=== PATIENT | male | born 1990 | race Caucasian/White ===

== ENCOUNTER 2020-03-07 09:18 | Inpatient (IN) | payer BC, MEDICAID ==
[2020-03-07 10:42] LABS: Basophils # (A) 0.1 k/uL (0-0.2); Basophils % (A) 0 %; Eosinophils # (A) 0.2 k/uL (0-0.7); Eosinophils % (A) 1 %; HCT 47.5 % (39.0-53.0); HGB 16.3 gm/dL (13.0-17.5); Lymphocytes # (A) 0.4 k/uL (1.0-4.8); Lymphocytes % (A) 2 %; MCH 30.9 pg (25.0-35.0); MCHC 34.4 g/dL (31.0-37.0); MCV 89.9 fL (80.0-100.0); Mean Platelet Volume 7.7; Monocytes # (A) 0.7 k/uL (0-1.0); Monocytes % (A) 4 %; Neutrophils # (A) 17.2 k/uL (1.3-7.7); Neutrophils % (A) 92 %; Platelet Count 217 k/uL (150-450); RBC 5.28 m/uL (4.30-5.90); WBC 18.7 k/uL (3.8-10.6)
--- NOTE | 2020-03-07 10:43 | ED ---
URI HPI - General Chief Complaint: Upper Respiratory Infection Stated Complaint: Fever and chills Time Seen by Provider: 03/07/20 09:30 Source: patient Mode of arrival: ambulatory Limitations: no limitations - History of Present Illness Initial Comments: 29-year-old male presenting for recurrent fevers. Patient states a month ago he had fevers was diagnosed with Covid 19. Patient states the symptoms resolved as well as the fever, but on he developed fever, chills, cough. Thursday went to urgent care and was given a penicillin injection and outpatient steroids/antibiotics. pt states that throughout the week he has had increasing bursing pain in chest with cough, dyspnea at rest and exertion, denies leg swelling, hemoptysis. denies sore throat, neck stiffness, admits to intermittent headaches. pt denies abdominal pain, diarrhea, nausea or vomiting. Patient states that the discomfort int he chest increases with cough and deep inspiration. pt has no additional complaints. - Related Data Home Medications Medication Instructions Recorded Confirmed Albuterol Inhaler [Ventolin Hfa 2 puff INHALATION RT-Q4H PRN 03/07/20 03/07/20 Inhaler] Azithromycin [Zithromax Z-pack (6 See Taper PO DAILY 03/07/20 03/07/20 tabs)] Ibuprofen [Motrin Ib] 400 mg PO Q6H PRN 03/07/20 03/07/20 predniSONE [Deltasone] 40 mg PO DAILY 03/07/20 03/07/20 Allergies Allergy/AdvReac Type Severity Reaction Status Date / Time Penicillins Allergy Rash/Hives Verified 03/07/20 10:50 Review of Systems ROS Statement: Those systems with pertinent positive or pertinent negative responses have been documented in the HPI. ROS Other: All systems not noted in ROS Statement are negative. Past Medical History Past Medical History: No Reported History History of Any Multi-Drug Resistant Organisms: None Reported Past Surgical History: No Surgical Hx Reported Past Psychological History: No Psychological Hx Reported Smoking Status: Never smoker Past Alcohol Use History: Rare Past Drug Use History: None Reported General Exam - General Exam Comments Initial Comments: General: The patient is awake and alert, in no distress Eye: +3 mm pupils are equal, round and reactive to light, extra-ocular movements are intact. No nystagmus. There is normal conjunctiva bilaterally. No signs of icterus. Ears, nose, mouth and throat: There are moist mucous membranes and no oral lesions. Neck: The neck is supple, there is no tenderness or JVD. Cardiovascular: There is a regular rate and rhythm. No murmur, rub or gallop is appreciated. Respiratory: Respirations are non-labored, breath sounds are equal. rhonchi and rales present mid right field. Gastrointestinal: Soft, non-distended, non-tender abdomen without masses or organomegaly noted. There is no rebound or guarding present. Musculoskeletal: Normal ROM, no tenderness. Strength 5/5. Sensation intact. Radial pulses equal bilaterally 2+. Neurological: A&O x 3. CN II-XII intact grossly, There are no obvious motor or sensory deficits. Coordination appears grossly intact. Speech is normal. Skin: Skin is warm and dry and no rashes or lesions are noted. Psychiatric: Cooperative, appropriate mood & affect, normal judgment. Limitations: no limitations Course Vital Signs 03/07/20 03/07/20 03/07/20 09:23 09:37 10:44 Temperature 99.3 F 97.8 F Pulse Rate 108 H 78 Respiratory 18 18 18 Rate Blood Pressure 125/66 129/78 O2 Sat by Pulse 97 96 Oximetry 03/07/20 11:43 Temperature 98.1 F Pulse Rate 88 Respiratory 16 Rate Blood Pressure 124/76 O2 Sat by Pulse 96 Oximetry Medical Decision Making - Medical Decision Making Leukocytosis. On abx for 2 days ,with IM injection at urgent care thursday. increasing cough, high fevers. pt feels unwell. he is taking tylenol and ibuprofen at home. covid + one month ago with resolution of symptoms for > 1 week and return Thursday. pt CXR reveals a very prominent middle right lobar pneumonia. pt give IVF, abx and will be admitted for further monitoring evaluation. Dr Kumar is agreeable to care plan and admission. Lanie MELGAR accepted for [facility] group - Lab Data Result diagrams: 03/07/20 09:45 03/07/20 09:45 Lab Results 03/07/20 03/07/20 03/07/20 Range/Units 09:45 09:45 09:45 WBC 18.7 H (3.8-10.6) k/uL RBC 5.28 (4.30-5.90) m/uL Hgb 16.3 (13.0-17.5) gm/dL Hct 47.5 (39.0-53.0) % MCV 89.9 (80.0-100.0) fL MCH 30.9 (25.0-35.0) pg MCHC 34.4 (31.0-37.0) g/dL RDW 12.0 (11.5-15.5) % Plt Count 217 (150-450) k/uL MPV 7.7 Neutrophils % 92 % Lymphocytes % 2 % Monocytes % 4 % Eosinophils % 1 % Basophils % 0 % Neutrophils # 17.2 H (1.3-7.7) k/uL Lymphocytes # 0.4 L (1.0-4.8) k/uL Monocytes # 0.7 (0-1.0) k/uL Eosinophils # 0.2 (0-0.7) k/uL Basophils # 0.1 (0-0.2) k/uL PT 10.5 (9.0-12.0) sec INR 1.0 (<1.2) APTT 24.9 (22.0-30.0) sec D-Dimer 0.78 H (<0.60) mg/L FEU Sodium 136 L (137-145) mmol/L Potassium 4.0 (3.5-5.1) mmol/L Chloride 103 (98-107) mmol/L Carbon Dioxide 26 (22-30) mmol/L Anion Gap 7 mmol/L BUN 10 (9-20) mg/dL Creatinine 0.80 (0.66-1.25) mg/dL Est GFR (CKD-EPI)AfAm >90 (>60 ml/min/1.73 sqM) Est GFR (CKD-EPI)NonAf >90 (>60 ml/min/1.73 sqM) Glucose 126 H (74-99) mg/dL Plasma Lactic Acid Freedom (0.7-2.0) mmol/L Calcium 9.7 (8.4-10.2) mg/dL Magnesium 1.9 (1.6-2.3) mg/dL Total Bilirubin 1.1 (0.2-1.3) mg/dL AST 47 (17-59) U/L ALT 44 (4-49) U/L Alkaline Phosphatase 85 (38-126) U/L Lactate Dehydrogenase 499 (313-618) U/L Troponin I (0.000-0.034) ng/mL C-Reactive Protein 241.5 H (<10.0) mg/L Total Protein 7.7 (6.3-8.2) g/dL Albumin 4.1 (3.5-5.0) g/dL Influenza Type A (PCR) (Not Detectd) Influenza Type B (PCR) (Not Detectd) RSV (PCR) (Not Detectd) SARS-CoV-2 (PCR) (Not Detectd) 03/07/20 03/07/20 03/07/20 Range/Units 09:45 09:45 10:14 WBC (3.8-10.6) k/uL RBC (4.30-5.90) m/uL Hgb (13.0-17.5) gm/dL Hct (39.0-53.0) % MCV (80.0-100.0) fL MCH (25.0-35.0) pg MCHC (31.0-37.0) g/dL RDW (11.5-15.5) % Plt Count (150-450) k/uL MPV Neutrophils % % Lymphocytes % % Monocytes % % Eosinophils % % Basophils % % Neutrophils # (1.3-7.7) k/uL Lymphocytes # (1.0-4.8) k/uL Monocytes # (0-1.0) k/uL Eosinophils # (0-0.7) k/uL Basophils # (0-0.2) k/uL PT (9.0-12.0) sec INR (<1.2) APTT (22.0-30.0) sec D-Dimer (<0.60) mg/L FEU Sodium (137-145) mmol/L Potassium (3.5-5.1) mmol/L Chloride (98-107) mmol/L Carbon Dioxide (22-30) mmol/L Anion Gap mmol/L BUN (9-20) mg/dL Creatinine (0.66-1.25) mg/dL Est GFR (CKD-EPI)AfAm (>60 ml/min/1.73 sqM) Est GFR (CKD-EPI)NonAf (>60 ml/min/1.73 sqM) Glucose (74-99) mg/dL Plasma Lactic Acid Freedom 1.0 (0.7-2.0) mmol/L Calcium (8.4-10.2) mg/dL Magnesium (1.6-2.3) mg/dL Total Bilirubin (0.2-1.3) mg/dL AST (17-59) U/L ALT (4-49) U/L Alkaline Phosphatase (38-126) U/L Lactate Dehydrogenase (313-618) U/L Troponin I <0.012 (0.000-0.034) ng/mL C-Reactive Protein (<10.0) mg/L Total Protein (6.3-8.2) g/dL Albumin (3.5-5.0) g/dL Influenza Type A (PCR) Not Detected (Not Detectd) Influenza Type B (PCR) Not Detected (Not Detectd) RSV (PCR) Not Detected (Not Detectd) SARS-CoV-2 (PCR) Not Detected (Not Detectd) Disposition Clinical Impression: Fever, Leukocytosis, Right middle lobe pneumonia, COVID-19 Disposition: ADMITTED IP TO [facility] Condition: Stable Is patient prescribed a controlled substance at d/c from ED?: No Referrals: Noe Zepeda DO [Primary Care Provider] - 1-2 days Time of Disposition: 11:47 Decision to Admit Reason: Admit from EC Decision Date: 03/07/20 Decision Time: 11:47
[2020-03-07 10:55] LABS: Partial Thromboplastin Time 24.9 sec (22.0-30.0); Prothrombin Time 10.5 sec (9.0-12.0)
[2020-03-07 10:58] LABS: ALT 44 U/L (4-49); AST 47 U/L (17-59); African American GFR (CKD) >90 (>60 ml/min/1.73 sqM); Albumin 4.1 g/dL (3.5-5.0); Alkaline Phosphatase 85 U/L (38-126); Anion Gap 7 mmol/L; Blood Urea Nitrogen 10 mg/dL (9-20); Calcium 9.7 mg/dL (8.4-10.2); Carbon Dioxide 26 mmol/L (22-30); Chloride 103 mmol/L (98-107); Glucose 126 mg/dL (74-99); LDH 499 U/L (313-618); Magnesium 1.9 mg/dL (1.6-2.3); Non-African American GFR(CKD) >90 (>60 ml/min/1.73 sqM); Sodium 136 mmol/L (137-145); Total Bilirubin 1.1 mg/dL (0.2-1.3); Total Protein 7.7 g/dL (6.3-8.2)
--- NOTE | 2020-03-07 11:21 | XR ---
EXAMINATION TYPE: XR chest 1V portable DATE OF EXAM: 03/07/2020 Comparison: None Clinical History: 29-year-old male with cough Suspected COVID-19 pneumonia Findings: The cardiomediastinal silhouette, aorta, and pulmonary vasculature are within normal limits. There i s focal consolidation involving the right middle lobe. Impression: Focal right middle lobe consolidation/pneumonia.
[2020-03-07 11:31] LABS: C Reactive Protein 241.5 mg/L (<10.0)
[2020-03-07] MEDS ORDERED: VANCOMYCIN IV PER PHARMACY 1 EACH MISC MISCELLANE PRN (11:44)
[2020-03-07] MEDS ORDERED: NALOXONE 0.4 MG/ML 1 ML VIAL IV PRN (11:45)
[2020-03-07] MEDS ORDERED: SODIUM CHLORIDE 0.9% 2,000 ML IV ONE (11:48)
--- NOTE | 2020-03-07 11:52 | CT ---
CT CHEST FOR PULMONARY EMBOLISM. EXAMINATION TYPE: CT chest angio for PE DATE OF EXAM: 03/07/2020 INDICATION: D-dimer high CT DLP: 409.8 mGycm, Automated exposure control for dose reduction was used. CONTRAST: Patient injected with 100 ml mL of Isovue 300. COMPARISON: None TECHNIQUE: CT of the chest is performed on a spiral scan at 2 mm thick sections. Study is performed with intravenous contrast timed for evaluation for pulmonary embolism. This will limit additional po rtions of the evaluation. 3-D MIP images reconstructed by the technologist are reviewed on the compu ter in the coronal and sagittal planes. FINDINGS: No persistent filling defects are evident to suggest an acute pulmonary embolism. No mediastinal or hilar adenopathy enlarged by CT criteria is evident. The ascending aorta diameter at the level of the main pulmonary artery is 3.3 cm. The main pulmonary artery diameter at the bifur cation is 2.8 cm. There is a consolidation within the right middle lobe. Correlate for pneumonia. Limited CT section through the upper abdomen are unremarkable. IMPRESSIONS: 1. No acute pulmonary embolism. 2. Right middle lobe consolidation. Correlate for pneumonia.
[2020-03-07] MEDS ORDERED: VANCOMYCIN 1,500 MG in SODIUM CHLORIDE 0.9% 250 ML IVPB ONE (12:15)
[2020-03-07] MEDS: SODIUM CHLORIDE 0.9% 1,000 ML IV SCH ×2 (12:55→23:17)
[2020-03-07] MEDS ORDERED: ALBUTEROL HFA INHALER INHALATION PRN (14:07)
[2020-03-07] MEDS: IPRATROPIUM-ALBUTEROL 3 ML NEB INHALATION SCH ×2 (15:44→20:13)
--- NOTE | 2020-03-07 16:17 | CONS ---
CONSULTATION PULMONARY/CRITICAL CARE CONSULTATION: DATE OF SERVICE: 03/07/2020 REASON FOR CONSULTATION: Pneumonia. This is a 29-year-old male who presents to the emergency department with complaints of shortness of breath, cough, chest congestion, phlegm production and fever. The patient started feeling poorly on Thursday last. He went to [facility] on Thursday. Apparently he had a chest x-ray and was told that he had right-sided pneumonia. He was given prednisone, ibuprofen, azithromycin and an albuterol inhaler. Despite all that, the patient states that things were not getting any better, and for that reason he came in to be evaluated. Again his complaints include chest tightness, cough, shortness of breath, chest congestion, phlegm production, and fever with chills. The patient is otherwise healthy. He does not smoke or drink to any great extent. He does not really take any medications at home on a regular basis. He was admitted with a diagnosis of right middle lobe pneumonia. He had a chest x-ray and CT scan in the emergency room. HOME MEDICATIONS: His home medications, all of which were given to him at [facility], include an albuterol inhaler, Zithromax, Motrin and prednisone. ALLERGIES: PENICILLIN. MEDICAL HISTORY: Unremarkable. SURGICAL HISTORY: Unremarkable. FAMILY HISTORY: Unremarkable. SOCIAL HISTORY: Negative for tobacco and illicit drug use. He drinks alcohol rarely. He does not take any medications at home on a regular basis. Both mother and father were healthy. REVIEW OF SYSTEMS: CONSTITUTIONAL: Fever, chills. NEUROLOGIC: Negative. HEENT: Negative. CARDIOVASCULAR: Negative. PULMONARY: Shortness of breath, chest congesting, cough, phlegm production, chest tightness. GI: Negative. : Negative. RHEUMATOLOGIC: Negative. IMMUNOLOGIC: Negative. ENDOCRINOLOGIC: Negative. DERMATOLOGIC: Negative. PHYSICAL EXAMINATION: VITAL SIGNS: Current vital signs are reviewed. Temperature is 98 degrees, heart rate is 88, respiratory rate 16, blood pressure 134/87, room-air saturation 99%. GENERAL APPEARANCE: He appears in no acute distress. HEENT: Examination is grossly unremarkable. NECK: Supple. Full range of motion. No adenopathy. Neck veins are flat. CARDIOVASCULAR: Examination reveals regular rhythm and rate. Heart rate 88. S1, S2 normal. There are a few premature beats. Initially when I auscultated him I thought he might be in atrial fibrillation, but I think it is probably either PACs or premature ventricular contractions that I am hearing. LUNGS: Lungs reveal a few scattered rhonchi. There are a few crackles at the right base. No wheezes. Breath sounds normal on the left side. ABDOMEN: Soft. Bowel sounds are heard. EXTREMITIES: Intact. No cyanosis, clubbing or edema. SKIN: Without rash. NEUROLOGIC: Neurologic examination is brief but nonfocal. LABS/IMAGING: White count 18.7, hemoglobin 16.3, hematocrit 47.5, platelet count normal. PT, INR, PTT normal. D-dimer is 0.78. Sodium 136, potassium 4, chloride 103, CO2 26. Anion gap is 7. BUN and creatinine were 10 and 0.8. Glucose 126. Rest of the labs look okay. LDH is 499. C-reactive protein 241.5. Troponins were negative. COVID testing was negative. Influenza A and B testing was negative. Microbiology is currently negative. Chest x-ray and CT scan are consistent with right middle lobe consolidation. CURRENT MEDICATIONS: Current medications are reviewed. The patient is on albuterol inhaler, received some vancomycin and Rocephin in the emergency room, and just on ibuprofen and Narcan. ASSESSMENT: Community-acquired pneumonia, right middle lobe, failing outpatient therapy. PLAN: The patient will be placed on Rocephin and Zithromax. He should be treated for a community-acquired pneumonia. Vancomycin will be discontinued. Will put him on updrafts, both albuterol and Atrovent. No steroids are needed. We did an EKG. We also did a Legionella urinary antigen test. Prognosis is good. No additional recommendations are made. Repeat chest x-ray in a couple of days. MMODL / IJN: [id number] /
[2020-03-07 17:03] LABS: Ferritin 688.9 ng/mL (22.0-322.0)
[2020-03-07] MEDS ORDERED: VANCOMYCIN 1,500 MG in SODIUM CHLORIDE 0.9% 250 ML IVPB SCH (20:00)
[2020-03-07] MEDS: ALBUTEROL HFA INHALER INHALATION SCH (20:13)
[2020-03-07] MEDS: ENOXAPARIN 40 MG/0.4 ML SYRINGE SQ SCH (20:38)
--- NOTE | 2020-03-07 20:59 | HP ---
HISTORY AND PHYSICAL DATE OF SERVICE: 03/07/2020 CHIEF COMPLAINT: Fever and chills. HISTORY OF PRESENT ILLNESS: This 29-year-old gentleman with a past medical history of GERD and hernia repair, being followed by Dr. Zepeda in the outpatient setting, was having fevers. About a month ago the patient was diagnosed with COVID-19. It resolved and the fever also improved, but subsequently patient is having chills, fever and cough since Thursday. The patient had some antibiotics, and because of lack of improvement the patient came to [facility] and was admitted for further evaluation and treatment. Evaluation in the ER showed elevated WBC at 18.7. D-dimer was 0.78. C-reactive protein 241. Influenza was negative. COVID-19 per rapid testing protocol was negative. The patient had a chest x- ray, which I personally reviewed. It showed evidence of significant pneumonia on the right side, and a CTA was done which showed more extensive lesions on both lungs, but mostly on the right side, indicative of a consolidating pattern. The patient was admitted and pulmonary and infectious disease evaluations have been sought. Rocephin and Zithromax have been ordered. Cultures will be obtained. The patient is being closely monitored at this time. There is no history any headache, loss of consciousness, seizures, chest pain, palpitations at this time. PAST MEDICAL HISTORY: History of recent COVID-19 pneumonia, history of GERD, history of hernia repair. HOME MEDICATIONS: Prednisone taper, Motrin, Zithromax, albuterol. ALLERGIES: PENICILLIN. FAMILY HISTORY: History of DJD in the family. SOCIAL HISTORY: Occasional alcohol intake. REVIEW OF SYSTEMS: ENT: No diminished hearing. No diminished vision. CARDIOVASCULAR SYSTEM: As mentioned earlier. RESPIRATORY SYSTEM: As mentioned earlier. GI: No nausea, vomiting. : No dysuria or retention. NERVOUS SYSTEM: No numbness, weakness. ALLERGY/IMMUNOLOGY: No asthma, hayfever. MUSCULOSKELETAL: As mentioned earlier. HEMATOLOGY/ONCOLOGY: No history of anemia. ENDOCRINE: No history of diabetes, hypothyroidism. CONSTITUTIONAL: As mentioned earlier. DERMATOLOGY: Negative. RHEUMATOLOGY: Negative. PSYCHIATRY: As mentioned earlier. PHYSICAL EXAMINATION: Patient alert and oriented x3. Pulse is 124, blood pressure 116/76, respirations 17, temperature 98.1, pulse ox 98% on 2 L. HEENT: Conjunctivae normal. NECK: No jugular venous distention. CARDIOVASCULAR SYSTEM: S1, S2 muffled. RESPIRATORY SYSTEM: Breath sounds diminished at the bases. Bilateral scattered rhonchi and crackles. ABDOMEN: Soft, non-tender. No mass palpable. LEGS: No edema. No swelling. NERVOUS SYSTEM: Higher functions as mentioned earlier. Moves all 4 limbs. No focal motor or sensory deficit. LYMPHATICS: No lymph node palpable in neck, axillae or groin. SKIN: No ulcer, rash, bleeding. JOINTS: No active deforming arthropathy. LABS: WBC 18.7. D-dimer is 0.78. Sodium is 136. C-reactive protein is 241.5. Procalcitonin is 0.27. The troponins are negative. ASSESSMENT: 1. Acute right lower lobe pneumonia, possibly superadded pneumonia, community-acquired pneumonia versus Gram-negative pneumonia, with possible sepsis. 2. Recent COVID-19 acute infection. 3. Hyponatremia. 4. Increased white count. 5. Increased CRP. 6. Elevated procalcitonin. 7. Increased ferritin. 8. History of gastroesophageal reflux disease. 9. History of hernia. 10.FULL CODE. RECOMMENDATIONS AND DISCUSSION: In this 29-year-old gentleman who presented with multiple complex medical issues, we will monitor the patient closely, continue the current medications, continue symptomatic treatment. Will initiate broad-spectrum antibiotics. Obtain the cultures, including sputum cultures. Otherwise, infectious disease and pulmonary consultations. Guarded prognosis because of multiple complex medical issues. Further recommendations to follow. A copy of this dictation is being forwarded to Dr. Zepeda, who is the primary physician. MMODL / IJN: [id number] /
[2020-03-07] MEDS: IBUPROFEN 400 MG TAB PO PRN (21:19)
[2020-03-08] MEDS: SODIUM CHLORIDE 0.9% 1,000 ML IV SCH ×3 (06:06→21:51)
[2020-03-08 07:13] LABS: Basophils % (A) 0 %; Eosinophils % (A) 0 %; HCT 45.8 % (39.0-53.0); HGB 15.1 gm/dL (13.0-17.5); Lymphocytes # (A) 0.7 k/uL (1.0-4.8); Lymphocytes % (A) 4 %; MCH 30.5 pg (25.0-35.0); MCV 92.5 fL (80.0-100.0); Mean Platelet Volume 7.9; Monocytes # (A) 0.5 k/uL (0-1.0); Monocytes % (A) 3 %; Neutrophils # (A) 14.5 k/uL (1.3-7.7); Neutrophils % (A) 91 %; Platelet Count 209 k/uL (150-450); RBC 4.95 m/uL (4.30-5.90); RDW 12.2 % (11.5-15.5); WBC 15.9 k/uL (3.8-10.6)
[2020-03-08] MEDS: IPRATROPIUM-ALBUTEROL 3 ML NEB INHALATION SCH ×4 (07:35→20:14)
[2020-03-08] MEDS: ALBUTEROL HFA INHALER INHALATION SCH ×4 (07:43→20:12)
[2020-03-08] MEDS: ACETAMINOPHEN TAB 500 MG TAB PO PRN (08:44)
[2020-03-08] MEDS: AZITHROMYCIN 500 MG TAB PO SCH (08:44)
[2020-03-08 09:51] LABS: Erythrocyte Sedimentation Rate 69 mm/hr (0-15)
--- NOTE | 2020-03-08 10:47 | P.PN ---
Subjective Progress Note Date: 03/08/20 Principal diagnosis: Right middle lobe community-acquired pneumonia This a very pleasant 29-year-old gentleman who was admitted on 03/07/2020 with complaints of increasing shortness of breath, cough and congestion. He had been having symptoms for 4-5 days prior to his admission. [facility] and was treated with azithromycin, ibuprofen, prednisone without much improvement. He was subsequently admitted with a right midlung community- acquired pneumonia. He is on ceftriaxone and azithromycin along with bronchodilators. He is seen today in follow-up on the regular medical floor. He is resting comfortably in bed. He is having some fever and chills still. Still with a loose productive cough. Temperature 102.4 last evening. Currently afebrile. White count 15.9. Hemoglobin 15.1. ESR 69. Legionella antigen was negative. Influenza negative. Coronavirus not detected. Objective - Vital Signs Vital signs: Vital Signs Temp 98.3 F 03/08/20 05:00 Pulse 100 03/08/20 07:48 Resp 20 03/08/20 08:52 BP 100/64 03/08/20 05:00 Pulse Ox 95 03/08/20 05:00 Intake & Output 03/07/20 03/08/20 03/08/20 18:59 06:59 18:59 Intake Total 2880 Balance 2880 Weight 89.811 kg Intake: Intake, IV Titration 1300 Amount Sodium Chloride 0.9% 1, 1300 000 ml @ 130 mls/hr IV . Q7H42M [facility] Rx#:[id number] Oral 1580 Other: Voiding Method Toilet # Voids 3 - Exam GENERAL EXAM: Alert, pleasant 29-year-old gentleman, on room air, comfortable in no apparent distress. HEAD: Normocephalic. EYES: Normal reaction of pupils, equal size. NOSE: Clear with pink turbinates. THROAT: No erythema or exudates. NECK: No masses, no JVD. CHEST: No chest wall deformity. LUNGS: Equal air entry with scattered rhonchi over the right lung. CVS: S1 and S2 normal with no audible murmur, regular rhythm. ABDOMEN: No hepatosplenomegaly, normal bowel sounds, no guarding or rigidity. SPINE: No scoliosis or deformity SKIN: No rashes CENTRAL NERVOUS SYSTEM: No focal deficits, tone is normal in all 4 extremities. EXTREMITIES: There is no peripheral edema. No clubbing, no cyanosis. Pe ripheral pulses are intact. - Labs CBC & Chem 7: 03/08/20 06:23 03/07/20 09:45 Labs: Abnormal Lab Results - Last 24 Hours (Table) 03/07/20 03/07/20 03/07/20 Range/Units 09:45 09:45 09:45 WBC 18.7 H (3.8-10.6) k/uL Neutrophils # 17.2 H (1.3-7.7) k/uL Lymphocytes # 0.4 L (1.0-4.8) k/uL ESR (0-15) mm/hr D-Dimer 0.78 H (<0.60) mg/L FEU Sodium 136 L (137-145) mmol/L Glucose 126 H (74-99) mg/dL Ferritin 688.9 H (22.0-322.0) ng/mL C-Reactive Protein 241.5 H (<10.0) mg/L Procalcitonin (0.02-0.09) ng/mL 03/07/20 03/08/20 Range/Units 09:45 06:23 WBC 15.9 H (3.8-10.6) k/uL Neutrophils # 14.5 H (1.3-7.7) k/uL Lymphocytes # 0.7 L (1.0-4.8) k/uL ESR 69 H (0-15) mm/hr D-Dimer (<0.60) mg/L FEU Sodium (137-145) mmol/L Glucose (74-99) mg/dL Ferritin (22.0-322.0) ng/mL C-Reactive Protein (<10.0) mg/L Procalcitonin 0.27 H (0.02-0.09) ng/mL Assessment and Plan Assessment: 1 Acute community-acquired right midlung pneumonia, failed outpatient therapy Gina: The patient was seen and evaluated by Dr. Hilaroi Currently stable and on room air Continue bronchodilators and antibiotics Lovenox for DVT prophylaxis Increase his activity as tolerated Repeat chest x-ray in a.m. We will continue to follow I, the cosigning physician, performed a history & physical examination of the patient. Lungs sounds with few scattered rhonchi in the right lung. Maintaining good O2 saturations in the 90s on room air. I discussed the assessment and plan of care with my nurse practitioner, Misti Chu. I attest to the above note as dictated by her.
[2020-03-08] MEDS ORDERED: VANCOMYCIN TROUGH DUE 1 EACH MISC MISCELLANE ONE (11:00)
[2020-03-08 11:33] LABS: Appearance,Urine Clear (Clear); Bilirubin,Urine Negative (Negative); Blood,Urine Trace (Negative); Color,Urine Yellow; Glucose,Urine (UA) Negative (Negative); Ketones,Urine Negative (Negative); Leukocyte Esterase,Urine Negative (Negative); Mucus,Urine Rare /hpf; Nitrite,Urine Negative (Negative); PH, Urine 6.5 (5.0-8.0); Protein,Urine Trace (Negative); RBC,Urine 1 /hpf (0-5); Specific Gravity,Urine 1.009 (1.001-1.035); Squamous Epithelial Cell,Urine <1 /hpf (0-4); Urobilinogen,Urine <2.0 mg/dL (<2.0); WBC,Urine 1 /hpf (0-5)
[2020-03-08 13:20] VITALS: BMI 28.4
[2020-03-08] MEDS: ZINC SULFATE 220 MG CAP PO SCH (17:22)
[2020-03-08] MEDS: ASCORBIC ACID 500 MG TAB PO SCH (17:22)
[2020-03-08] MEDS: dexAMETHasone 2 MG TAB PO SCH (17:22)
[2020-03-08] MEDS: CHOLECALCIFEROL 1,000 UNIT TAB PO SCH (17:22)
[2020-03-08] MEDS: ALPRAZolam 0.25 MG TAB PO PRN (17:22)
[2020-03-08 17:38] LABS: African American GFR (CKD) 132.4 (60.0-200.0); Anion Gap 9.3 mmol/L (4.00-12.00); C Reactive Protein 31.9 mg/dL (0.0-0.8); Calcium 8.9 mg/dL (8.7-10.3); Carbon Dioxide 26.7 mmol/L (21.6-31.8); Non-African American GFR(CKD) 114.2 (60.0-200.0); Potassium 4.2 mmol/L (3.5-5.5)
--- NOTE | 2020-03-08 18:32 | PN ---
PROGRESS NOTE DATE OF SERVICE: 03/08/2020 This 29-year-old gentleman with a past medical history of recent COVID-19 was admitted with fever and chills. Patient had significant pneumonia on the right side. The patient also has tachycardia on and off at this time, which was seen on telemetry which is most likely sinus tachycardia. Cardiology evaluation has been sought. A chest CT was also done which showed no evidence of an acute pulmonary embolism. Patient is being closely monitored at this time. The patient's sed rate is 69 and CRP is elevated at 241. Patient had a very rate of inflammatory markers. Urine Legionella is negative. RSV is negative. The COVID-19 test was also negative in the combination testing. Past medical history reviewed. REVIEW OF SYSTEMS: CARDIOVASCULAR SYSTEM: As mentioned earlier. RESPIRATORY SYSTEM: As mentioned earlier. GI: As mentioned earlier. : No dysuria or retention. NERVOUS SYSTEM: No numbness, weakness. CURRENT MEDICATIONS: Tylenol, Ventolin, Rocephin, Motrin, Narcan. PHYSICAL EXAMINATION: Patient is alert, oriented x3. Pulse is 64, blood pressure 170/60, respiration 18, temperature 98.2, pulse ox on room air. HEENT: Conjunctivae normal. NECK: No jugular venous distention. CARDIOVASCULAR SYSTEM: S1, S2 muffled. RESPIRATORY SYSTEM: Breath sounds diminished at the bases. A few scattered rhonchi and crackles. ABDOMEN: Soft, non-tender. LEGS: No edema. No swelling. NERVOUS SYSTEM: No focal deficit. LABS: WBC 15.9, hemoglobin 15.1. ASSESSMENT: 1. Acute right lower lobe pneumonia, possibly superadded pneumonia, community- acquired pneumonia versus Gram-negative pneumonia with possible sepsis, present on admission. 2. Recent COVID-19 acute infection. 3. Hyponatremia. 4. Increased white count. 5. Tachycardia, possibly sinus. 6. Increased CRP. 7. Elevated procalcitonin. 8. Increased ferritin. 9. History of gastroesophageal reflux disease. 10.History of hernia. 11.FULL CODE. RECOMMENDATIONS AND DISCUSSION: I recommend to continue current medications, continue with the monitoring, symptomatic treatment. Continue with empiric antibiotics. I would also recommend supportive treatment, including Lovenox. Otherwise, I would also recommend a 2D echo with Doppler. Cardiology evaluation also. Closely follow with Infectious Disease and Pulmonary. Guarded prognosis. Further recommendations to follow. MMODL / IJN: [id number] / [email or web address]
[2020-03-08] MEDS: ENOXAPARIN 40 MG/0.4 ML SYRINGE SQ SCH (20:36)
[2020-03-08] MEDS: FAMOTIDINE 20 MG TAB PO SCH (20:36)
[2020-03-09] MEDS: ALPRAZolam 0.25 MG TAB PO PRN (04:57)
[2020-03-09] MEDS: SODIUM CHLORIDE 0.9% 1,000 ML IV SCH ×2 (04:57→12:46)
[2020-03-09 06:17] LABS: Basophils % (A) 0 %; Eosinophils % (A) 0 %; HGB 15.1 gm/dL (13.0-17.5); Lymphocytes # (A) 0.5 k/uL (1.0-4.8); Lymphocytes % (A) 2 %; MCH 31.1 pg (25.0-35.0); MCHC 33.5 g/dL (31.0-37.0); MCV 92.7 fL (80.0-100.0); Mean Platelet Volume 8.1; Monocytes # (A) 0.4 k/uL (0-1.0); Monocytes % (A) 2 %; Neutrophils # (A) 20.9 k/uL (1.3-7.7); Neutrophils % (A) 95 %; Platelet Count 256 k/uL (150-450); RBC 4.85 m/uL (4.30-5.90); RDW 12.3 % (11.5-15.5)
--- NOTE | 2020-03-09 07:06 | XR ---
EXAMINATION TYPE: XR chest 2V DATE OF EXAM: 03/09/2020 COMPARISON: Chest x-ray and CTA chest from 2 days ago. HISTORY: Right midlung pneumonia. TECHNIQUE: Frontal and lateral views of the chest are obtained. FINDINGS: There is worsening consolidation in the right lower lung now silhouetting entire right hem idiaphragm. There is also developing central vascular congestion. No new mediastinal shift. The card iac silhouette size remains within normal limits. The osseous structures are intact. IMPRESSION: Worsening right basilar acute infiltrate and/or atelectasis. Developing mild central vasc ular congestion.
[2020-03-09] MEDS: IPRATROPIUM-ALBUTEROL 3 ML NEB INHALATION SCH ×4 (07:33→20:00)
[2020-03-09] MEDS: ALBUTEROL HFA INHALER INHALATION SCH ×5 (07:41→19:59)
[2020-03-09] MEDS: FAMOTIDINE 20 MG TAB PO SCH ×2 (08:55→23:00)
[2020-03-09] MEDS: ZINC SULFATE 220 MG CAP PO SCH (08:55)
[2020-03-09] MEDS: CHOLECALCIFEROL 1,000 UNIT TAB PO SCH (08:56)
[2020-03-09] MEDS: APIXABAN 5 MG TAB PO SCH ×2 (08:56→23:00)
[2020-03-09] MEDS: AZITHROMYCIN 500 MG TAB PO SCH (08:56)
[2020-03-09] MEDS: ASCORBIC ACID 500 MG TAB PO SCH (08:56)
[2020-03-09] MEDS: dexAMETHasone 2 MG TAB PO SCH (08:56)
[2020-03-09] MEDS ORDERED: DILTIAZEM ORAL 60 MG TAB PO SCH (09:00)
[2020-03-09 09:55] LABS: African American GFR (CKD) 146.8 (60.0-200.0); Anion Gap 6.4 mmol/L (4.00-12.00); BUN/Creat Ratio 12.86 Ratio (12.00-20.00); Carbon Dioxide 26.6 mmol/L (21.6-31.8); Non-African American GFR(CKD) 126.6 (60.0-200.0); Potassium 4.5 mmol/L (3.5-5.5)
--- NOTE | 2020-03-09 11:10 | P.CONS ---
History of Present Illness - Reason for Consult Consult date: 03/08/20 pneumonia Requesting physician: Thad Zuniga - Chief Complaint fever and cough x 3 days - History of Present Illness Patient is a 29-year-old male apparently did have a COVID-19 infection about a month ago for me the patient recovered at home without any specific treatment patient now presenting to [facility] ER with concern for fever and chest pain that apparently started on Thursday that is 3 days before presentation to the hospital apparently the patient was given a dose of intramuscular antibiotic and discharged on steroids and antibiotic with the patient not sure about the name however the patient did have increasing burning pain in his chest intensity 5-6 out of 10 and no radiation the patient also have a cough which is moderate intensity and bringing up some sputum no hemoptysis no nausea no vomiting no abdominal pain no diarrhea with the symptom the patient was evaluated by the ER physician on arrival to the ER patient was running low- grade 99 point he subsequently spiked a fever of 104.4 F patient did have a white count of 18.7 is down to 13.9 today kidney function was normal ferritin was elevated procalcitonin 0.27, the patient has been negative patient did have a chest x-ray focal right middle lobe consolidation/pneumonia CT angiogram of the chest was done which did shows right middle lobe consolidation correlate for pneumonia patient has been admitted to hospital patient was started on Rocephin and Zithromax infectious was consulted for further management of antibiotic therapy. Review of Systems Positive point has been mentioned in HPI, rest of the systems are negative Past Medical History Past Medical History: GERD/Reflux History of Any Multi-Drug Resistant Organisms: None Reported Past Surgical History: Hernia Repair Additional Past Surgical History / Comment(s): Hernia repair as a child. Past Anesthesia/Blood Transfusion Reactions: No Reported Reaction Smoking Status: Never smoker - Past Family History Father Family Medical History: Osteoarthritis (OA) Mother Family Medical History: No Reported History Medications and Allergies Home Medications Medication Instructions Recorded Confirmed Type Albuterol Inhaler [Ventolin Hfa 2 puff INHALATION RT-Q4H PRN 03/07/20 03/07/20 History Inhaler] Azithromycin [Zithromax Z-pack (6 See Taper PO DAILY 03/07/20 03/07/20 History tabs)] Ibuprofen [Motrin Ib] 400 mg PO Q6H PRN 03/07/20 03/07/20 History predniSONE [Deltasone] 40 mg PO DAILY 03/07/20 03/07/20 History Allergies Allergy/AdvReac Type Severity Reaction Status Date / Time Penicillins Allergy Rash/Hives Verified 03/07/20 10:50 Physical Exam Vitals: Vital Signs Temp Pulse Pulse Resp BP Pulse Ox 03/08/20 21:00 97.9 F 120 H 32 H 123/80 95 03/08/20 20:24 112 H 03/08/20 20:14 114 H 03/08/20 14:00 97.7 F 67 22 126/78 93 L 03/08/20 12:49 66 03/08/20 12:38 65 03/08/20 10:40 98.4 F 64 18 117/67 91 L 03/08/20 08:52 20 03/08/20 07:48 100 03/08/20 07:36 100 03/08/20 05:00 98.3 F 113 H 20 100/64 95 Intake and Output 03/08/20 03/08/20 03/08/20 06:59 14:59 22:59 Intake Total 2880 1050 Balance 2880 1050 Intake: Intake, IV Titration 1300 1050 Amount Sodium Chloride 0.9% 1, 1300 1000 000 ml @ 130 mls/hr IV . Q7H42M [facility] Rx#:[id number] cefTRIAXone 1 gm In 50 Sodium Chloride 0.9% 50 ml @ 100 mls/hr IVPB Q24HR [facility] Rx#:[id number] Oral 1580 Other: # Voids 3 Weight 89.811 kg GENERAL DESCRIPTION: Middle-aged male lying in bed, no distress. No tachypnea or accessory muscle of respiration use. HEENT: Shows Pallor , no scleral icterus. Oral mucous membrane is dry. No pharyngeal erythema or thrush NECK: Trachea central, no thyromegaly. LUNGS: Unlabored breathing. Coarse breath sounds right side. No wheeze or crackle. HEART: S1, S2, regular rate and rhythm. No loud murmur ABDOMEN: Soft, no tenderness , guarding or rigidity, no organomegaly EXTREMITIES: No edema of feet. SKIN: No rash, no masses palpable. NEUROLOGICAL: The patient is awake, alert, oriented x3, mood and affect normal Results CBC & Chem 7: 03/09/20 05:44 03/09/20 05:44 Labs: Abnormal Lab Results - Last 24 Hours (Table) 03/08/20 03/08/20 03/08/20 Range/Units 06:23 06:23 09:47 WBC 15.9 H (3.8-10.6) k/uL Neutrophils # 14.5 H (1.3-7.7) k/uL Lymphocytes # 0.7 L (1.0-4.8) k/uL ESR 69 H (0-15) mm/hr BUN/Creatinine Ratio 10.00 L (12.00-20.00) Ratio Glucose 131 H (70-110) mg/dL C-Reactive Protein 31.9 H (0.0-0.8) mg/dL Urine Protein Trace H (Negative) Urine Blood Trace H (Negative) Urine Mucus Rare H (None) /hpf Microbiology - Last 24 Hours (Table) 03/07/20 09:45 Blood Culture - Preliminary Blood No Growth after 24 hours Assessment and Plan Assessment: 1-patient presented to hospital with sepsis in this patient who did have increasing shortness of breath cough fever elevated white count source likely right middle lobe pneumonia likely community-acquired (1) Sepsis Current Visit: Yes Status: Acute Code(s): A41.9 - SEPSIS, UNSPECIFIED ORGANISM SNOMED Code(s): 02476188 (2) Right middle lobe pneumonia Current Visit: Yes Status: Acute Code(s): J18.9 - PNEUMONIA, UNSPECIFIED ORGANISM SNOMED Code(s): 426814271 Plan: 1-obtain sputum for Gram stain and culture 2-Rocephin 1 g daily Zithromax should provide adequate antibiotic coverage We will follow on clinical condition and cultures to further adjust medication if needed Thank you for this consultation will follow this patient along with you Time with Patient: Greater than 30
[2020-03-09] MEDS ORDERED: FUROSEMIDE 10 MG/ML 2 ML VIAL IV ONE (11:34)
--- NOTE | 2020-03-09 11:48 | P.PN ---
Subjective Progress Note Date: 03/09/20 Principal diagnosis: Right middle lobe community-acquired pneumonia This a very pleasant 29-year-old gentleman who was admitted on 03/07/2020 with complaints of increasing shortness of breath, cough and congestion. He had been having symptoms for 4-5 days prior to his admission. [facility] and was treated with azithromycin, ibuprofen, prednisone without much improvement. He was subsequently admitted with a right midlung community- acquired pneumonia. He is on ceftriaxone and azithromycin along with bronchodilators. He is seen today in follow-up on the regular medical floor. He is resting comfortably in bed. He is having some fever and chills still. Still with a loose productive cough. Temperature 102.4 last evening. Currently afebrile. White count 15.9. Hemoglobin 15.1. ESR 69. Legionella antigen was negative. Influenza negative. Coronavirus not detected. The patient is seen today 03/09/2020 in follow-up on the regular medical floor. He is currently resting comfortably in bed. Awake and alert in no acute distress. He has been having issues with atrial fibrillation with a rapid ventricular response. He's been initiated on oral Cardizem and anticoagulated with Eliquis. Lovenox was discontinued. Echocardiogram is pending. He is maintaining good O2 saturations in the mid 90s on 2 L/m per nasal cannula. Currently afebrile. Blood culture reveals no growth. White count 22.0. Hemoglobin 15.1. Sodium 141. Potassium 4.5. Creatinine 0.7. C-reactive protein 38.0. Today's chest x-ray reveals worsening right basilar acute infiltrate/atelectasis. Mild central vascular congestion. He remains on ceftriaxone and azithromycin. Continue bronchodilators. Objective - Vital Signs Vital signs: Vital Signs Temp 98.5 F 03/09/20 10:41 Pulse 132 H 03/09/20 10:41 Resp 17 03/09/20 10:41 BP 125/77 03/09/20 10:41 Pulse Ox 96 03/09/20 10:41 Intake & Output 03/08/20 03/09/20 03/09/20 18:59 06:59 18:59 Intake Total 1050 500 Balance 1050 500 Weight 89.811 kg Intake: Intake, IV Titration 1050 Amount Sodium Chloride 0.9% 1, 1000 000 ml @ 130 mls/hr IV . Q7H42M [facility] Rx#:[id number] cefTRIAXone 1 gm In 50 Sodium Chloride 0.9% 50 ml @ 100 mls/hr IVPB Q24HR [facility] Rx#:[id number] Oral 500 Other: Voiding Method Toilet # Voids 2 - Exam GENERAL EXAM: Alert, pleasant 29-year-old gentleman, on 2 L nasal cannula, comfortable in no apparent distress. HEAD: Normocephalic. EYES: Normal reaction of pupils, equal size. NOSE: Clear with pink turbinates. THROAT: No erythema or exudates. NECK: No masses, no JVD. CHEST: No chest wall deformity. LUNGS: Equal air entry with scattered rhonchi over the right lung, diminished, crackles in the bases. CVS: S1 and S2 normal with no audible murmur, regular rhythm. Tachycardic. ABDOMEN: No hepatosplenomegaly, normal bowel sounds, no guarding or rigidity. SPINE: No scoliosis or deformity SKIN: No rashes CENTRAL NERVOUS SYSTEM: No focal deficits, tone is normal in all 4 extremities. EXTREMITIES: There is no peripheral edema. No clubbing, no cyanosis. Peripheral pulses are intact. - Labs CBC & Chem 7: 03/09/20 05:44 03/09/20 05:44 Labs: Abnormal Lab Results - Last 24 Hours (Table) 03/08/20 03/08/20 03/09/20 Range/Units 06:23 09:47 05:44 WBC 22.0 H (3.8-10.6) k/uL Neutrophils # 20.9 H (1.3-7.7) k/uL Lymphocytes # 0.5 L (1.0-4.8) k/uL BUN/Creatinine Ratio 10.00 L (12.00-20.00) Ratio Glucose 131 H (70-110) mg/dL C-Reactive Protein 31.9 H (0.0-0.8) mg/dL Urine Protein Trace H (Negative) Urine Blood Trace H (Negative) Urine Mucus Rare H (None) /hpf 03/09/20 Range/Units 05:44 WBC (3.8-10.6) k/uL Neutrophils # (1.3-7.7) k/uL Lymphocytes # (1.0-4.8) k/uL BUN/Creatinine Ratio (12.00-20.00) Ratio Glucose (70-110) mg/dL C-Reactive Protein 38.0 H (0.0-0.8) mg/dL Urine Protein (Negative) Urine Blood (Negative) Urine Mucus (None) /hpf Microbiology - Last 24 Hours (Table) 03/07/20 09:45 Blood Culture - Preliminary Blood No Growth after 24 hours Assessment and Plan Assessment: 1 Acute community-acquired right midlung pneumonia, failed outpatient therapy 2 Leukocytosis secondary to above 3 Febrile illness secondary to above 4 New onset atrial fibrillation with rapid ventricular response 5 History of CoVID 19 infection one month ago Plan: The patient was seen and evaluated by Dr. Hilario Chest x-ray reveals worsening infiltrate in the right lung, mild vascular congestion Initiated on oral Cardizem and anticoagulated with Eliquis, Lovenox discontinued Check a proBNP, T4, TSH Echocardiogram pending Lasix 20 mg IVP 1 Continue bronchodilators and antibiotics Add incentive spirometer and encourage cough and deep breathing exercises Repeat chest x-ray in a.m. We will continue to follow I, the cosigning physician, performed a history & physical examination of the patient. Lungs sounds with few scattered rhonchi in the right lung, bibasilar crackles, diminished. Maintaining good O2 saturations in the 90s on 2 L/m per nasal cannula. I discussed the assessment and plan of care with my nurse practitioner, Misti Chu. I attest to the above note as dictated by her.
--- NOTE | 2020-03-09 12:00 | P.CRDCN ---
History of Present Illness Consult date: 03/09/20 Consult reason: shortness of breath History of present illness: The patient is a 29-year-old male with past medical history of acid reflux and recent COVID 19 infection, who presented to the hospital with worsening shortness of breath and fever. He also reported some intermittent chest discomfort. This pain has since resolved. He states overall he is feeling better this morning, but continues to have shortness of breath and overall fatigue. Nursing staff notified on-call promotion officer of new onset arrhythmia. Telemetry strips examined, which confirms A. fib with RVR. DIAGNOSTICS: EKG showed sinus mechanism without ST or T-wave changes. Chest x-ray shows focal right middle lobe consolidation/pneumonia CT of the chest correlates chest x-ray readings of right middle lobe pneumonia Laboratory data shows WBC at 22.0, hemoglobin 15.1, hematocrit 45.0, platelet 256, sodium 141, potassium 4.5, BUN 9, creatinine 0.7, troponin less than 0.012, CRP 38, influenza negative, Legionella negative, RSV negative, and rapid covid swab negative PAST MEDICAL HISTORY: Acid reflux PHYSICAL EXAMINATION: Thorough physical exam not completed secondary to limited evaluation in the setting of Covid 19. FINAL ASSESSMENT AND PLAN: #1 shortness of breath, secondary to pneumonia and previous Covid 19 infection #2 acute right lower lobe pneumonia, failed outpatient therapy #3 recent Covid 19 infection #4 new onset of atrial fibrillation #5 leukocytosis PLAN: Start patient on novel anticoagulation due to patient's recent Covid 19 infection; discontinue Lovenox Start the patient on low-dose calcium channel susan for rate control Patient will likely convert back to sinus mechanism with resolution an acute infection Follow-up outpatient in 2-3 weeks for further management Plan of care has been reviewed and agreed upon by Dr Mckeon. Past Medical History Past Medical History: GERD/Reflux History of Any Multi-Drug Resistant Organisms: None Reported Past Surgical History: Hernia Repair Additional Past Surgical History / Comment(s): Hernia repair as a child. Past Anesthesia/Blood Transfusion Reactions: No Reported Reaction Smoking Status: Never smoker - Past Family History Father Family Medical History: Osteoarthritis (OA) Mother Family Medical History: No Reported History Medications and Allergies Home Medications Medication Instructions Recorded Confirmed Type Albuterol Inhaler [Ventolin Hfa 2 puff INHALATION RT-Q4H PRN 03/07/20 03/07/20 History Inhaler] Azithromycin [Zithromax Z-pack (6 See Taper PO DAILY 03/07/20 03/07/20 History tabs)] Ibuprofen [Motrin Ib] 400 mg PO Q6H PRN 03/07/20 03/07/20 History predniSONE [Deltasone] 40 mg PO DAILY 03/07/20 03/07/20 History Allergies Allergy/AdvReac Type Severity Reaction Status Date / Time Penicillins Allergy Rash/Hives Verified 03/07/20 10:50 Physical Exam Vitals: Vital Signs Temp Pulse Pulse Resp BP Pulse Ox 03/09/20 10:41 98.5 F 132 H 17 125/77 96 03/09/20 07:44 65 03/09/20 07:33 63 96 03/09/20 05:00 98.1 F 60 20 120/81 95 03/08/20 21:00 97.9 F 120 H 32 H 123/80 95 03/08/20 20:24 112 H 03/08/20 20:14 114 H 03/08/20 14:00 97.7 F 67 22 126/78 93 L 03/08/20 12:49 66 03/08/20 12:38 65 Intake and Output 03/08/20 03/09/20 03/09/20 22:59 06:59 14:59 Intake Total 1050 500 Balance 1050 500 Intake: Intake, IV Titration 1050 Amount Sodium Chloride 0.9% 1, 1000 000 ml @ 130 mls/hr IV . Q7H42M [facility] Rx#:[id number] cefTRIAXone 1 gm In 50 Sodium Chloride 0.9% 50 ml @ 100 mls/hr IVPB Q24HR [facility] Rx#:[id number] Oral 500 Other: Voiding Method Toilet # Voids 2 Results 03/09/20 05:44 03/09/20 05:44 CBC 03/09/20 Range/Units 05:44 WBC 22.0 H (3.8-10.6) k/uL RBC 4.85 (4.30-5.90) m/uL Hgb 15.1 (13.0-17.5) gm/dL Hct 45.0 (39.0-53.0) % Plt Count 256 (150-450) k/uL Comprehensive Metabolic Panel 03/08/20 03/09/20 Range/Units 06:23 05:44 Sodium 139 141 (135-145) mmol/L Potassium 4.2 4.5 (3.5-5.5) mmol/L Chloride 103 108 (96-109) mmol/L Carbon Dioxide 26.7 26.6 (21.6-31.8) mmol/L BUN 9.0 9.0 (9.0-27.0) mg/dL Creatinine 0.9 0.7 (0.6-1.5) mg/dL Glucose 131 H 109 (70-110) mg/dL Calcium 8.9 9.0 (8.7-10.3) mg/dL Current Medications Generic Name Dose Route Start Last Admin Trade Name Freq PRN Reason Stop Dose Admin Acetaminophen 1,000 mg 03/08/20 03:12 03/08/20 08:44 Acetaminophen Tab 500 Mg Tab PO 1,000 mg Q6HR PRN Administration Fever and/ or Pain Albuterol Sulfate 2 puff 03/07/20 20:00 03/09/20 07:41 Albuterol Hfa Inhaler INHALATION Not Given RT-QID [facility] Albuterol/Ipratropium 3 ml 03/07/20 16:00 03/09/20 07:33 Ipratropium-Albuterol 3 Ml Neb INHALATION 3 ml RT-QID [facility] Administration Alprazolam 0.5 mg 03/09/20 11:29 Alprazolam 0.5 Mg Tab PO TID PRN Anxiety Apixaban 5 mg 03/09/20 09:00 03/09/20 08:56 Apixaban 5 Mg Tab PO 5 mg BID [facility] Administration Ascorbic Acid 500 mg 03/08/20 17:00 03/09/20 08:56 Ascorbic Acid 500 Mg Tab PO 500 mg DAILY [facility] Administration Azithromycin 500 mg 03/08/20 09:00 03/09/20 08:56 Azithromycin 500 Mg Tab PO 500 mg DAILY [facility] Administration Cholecalciferol 1,000 unit 03/08/20 17:00 03/09/20 08:56 Cholecalciferol 1,000 Unit Tab PO 1,000 unit DAILY [facility] Administration Dexamethasone 6 mg 03/08/20 17:00 03/09/20 08:56 Dexamethasone 2 Mg Tab PO 6 mg DAILY [facility] Administration Diltiazem HCl 60 mg 03/09/20 09:00 03/09/20 08:56 Diltiazem Oral 60 Mg Tab PO 60 mg TID [facility] Administration Famotidine 20 mg 03/08/20 21:00 03/09/20 08:55 Famotidine 20 Mg Tab PO 20 mg BID [facility] Administration Sodium Chloride 1,000 mls @ 130 mls/hr 03/07/20 12:00 03/09/20 04:57 Saline 0.9% IV 130 mls/hr .Q7H42M [facility] Administration Ceftriaxone Sodium 1 gm/ 50 mls @ 100 mls/hr 03/08/20 09:00 03/09/20 08:56 Sodium Chloride IVPB 100 mls/hr Q24HR [facility] Administration Ibuprofen 400 mg 03/07/20 14:07 03/07/20 21:19 Ibuprofen 400 Mg Tab PO 400 mg Q6H PRN Administration Fever Naloxone HCl 0.2 mg 03/07/20 11:45 Naloxone 0.4 Mg/Ml 1 Ml Vial IV Q2M PRN Opioid Reversal Zinc Sulfate 220 mg 03/08/20 17:00 03/09/20 08:55 Zinc Sulfate 220 Mg Cap PO 220 mg DAILY [facility] Administration Intake and Output 03/08/20 03/09/20 03/09/20 22:59 06:59 14:59 Intake Total 1050 500 Balance 1050 500 Intake: Intake, IV Titration 1050 Amount Sodium Chloride 0.9% 1, 1000 000 ml @ 130 mls/hr IV . Q7H42M [facility] Rx#:[id number] cefTRIAXone 1 gm In 50 Sodium Chloride 0.9% 50 ml @ 100 mls/hr IVPB Q24HR [facility] Rx#:[id number] Oral 500 Other: Voiding Method Toilet # Voids 2 03/09/20 05:44 03/09/20 05:44
[2020-03-09] MEDS: ALPRAZolam 0.5 MG TAB PO PRN (12:46)
[2020-03-09] MEDS ORDERED: DILTIAZEM ORAL 60 MG TAB PO STA (12:59)
[2020-03-09] MEDS ORDERED: DILTIAZEM 125 MG in SODIUM CHLORIDE 0.9% 100 ML IV SCH (13:15)
[2020-03-09 13:53] LABS: Glucose,Whole Blood 144 mg/dL (75-99)
--- NOTE | 2020-03-09 14:19 | P.PN ---
Progress Note - Text Progress Note Date: 03/09/20 A- Team Indication: A fib Patient seen and examined at bedside. He complains of pounding in his chest and mild shortness of breath, feeling flushed, and. diaphoretic. He denies any overt chest pain. He does not feel lightheaded or to see. Vital signs reviewed General: non toxic, no distress, appears at stated age Derm: Diaphoretic, dry Head: atraumatic, normocephalic, symmetric Eyes: EOMI, no lid lag, anicteric sclera Mouth: no lip lesion, mucus membranes moist Cardiovascular: S1S2 regular and tachycardic, no murmur, positive posterior tibial pulse bilateral, Lungs: Decreased breath sounds bilateral, no rhonchi, no rales , no accessory muscle use Abdominal: soft, nontender to palpation, no guarding, no appreciable organomegaly Ext: no gross muscle atrophy, no edema, no contractures Neuro: CN II-XI grossly intact, no focal neuro deficits Psych: Alert, oriented, appropriate affect Assessment/Plan: 1. Atrial fibrillation with rapid ventricular response -Per ICU and then patient with pulse of 200. He was hooked up to crash carts we could provide bedside monitoring. Arrangements are made for transportation to [facility]. -0.9 normal saline started at 9.9 -EKG obtain which showed sinus tachycardia. However monitor clearly consistent with atrial fibrillation. -Patient was able to slow his heart rate by relaxing and deep breathing -Cardizem 10 mg IV push plus drip at 10 was ordered, however unable to be given on the unit. Ask pharmacy to send it up with ICU nurse at bedside. Patient was initially given 10 of IV Cardizem and had a response with a heart rate down to 140s, however quickly rebounded to 218. History was started. Dr. Mckeon contacted from cardiology who recommended increasing the drip to 15-20 mg/hr. - Patient transferred to ICU. HR decreased to 145, BP 101/42. - Report given to primary team - Dr. Hilario is already on consult - He reports that increased HR started after breathing treatment and trip to the bathroom and he felt very winded - Already on Eliquis as started by cardio on 03/09/20 A total of 31 minutes of critical care time was complex patient.
[2020-03-09] MEDS: DILTIAZEM 125 MG in SODIUM CHLORIDE 0.9% 100 ML IV SCH (14:30)
--- NOTE | 2020-03-09 16:29 | PN ---
PROGRESS NOTE DATE OF SERVICE: 03/09/2020 This 29-year-old gentleman who had a past medical history of medical problems admitted with COVID-19 pneumonia. The chest x-ray showed significant pneumonia on the right side. The patient is also seen by Cardiology. Patient also had Covid infection. The patient had atrial fibrillation with fast ventricular rate. Cardiology recommended Cardizem drip at this time. The patient will be transferred to telemetry at this time. PAST MEDICAL HISTORY: Reviewed. REVIEW OF SYSTEMS: CARDIOVASCULAR SYSTEM: No angina. RESPIRATION: As mentioned earlier. GI as mentioned earlier. : No dysuria. CURRENT MEDICATIONS: Reviewed and include: Tylenol, Ventolin, Xanax, Eliquis, vitamin C, Zithromax, Rocephin, Hexadrol, Pepcid. Motrin. Narcan and oral zinc. PHYSICAL EXAMINATION: Alert and oriented times three. Pulse 132, irregular. Blood pressure is 125/76, respiration 17, temperature 98.4, pulse ox 96% on 3 L. HEENT: Conjunctivae normal. Neck: No JVD. CARDIOVASCULAR: S1, S2. Respirations: Breath sounds diminished in the bases. A few scattered rhonchi and crackles. ABDOMEN: Soft. Nontender. Legs are no edema. No swelling. NERVOUS SYSTEM: No focal deficits. LAB STUDIES: WBC 22, hemoglobin 15.1. CRP is 38. TSH is 1.25. NT proBNP is 2830. Initial troponins are negative. Influenza is negative. RSV is negative. ASSESSMENT: 1. Acute right lower lobe pneumonia possibly suppurative pneumonia, community-acquired pneumonia or possibly gram-negative pneumonia with possible sepsis present on admission. 2. Recent Covid 19 acute infection. 3. Atrial fibrillation with fast ventricular rate and acute sinus tachycardia. 4. Hyponatremia. 5. Increased WBC. 6. Increased CRP. 7. Elevated procalcitonin. 8. Increased ferritin. 9. History of gastroesophageal reflux disease. 10.History of hernia. 11.FULL CODE. RECOMMENDATIONS AND DISCUSSION: Recommend to continue current medications. Continue to monitor. Symptomatic treatment. Otherwise, at this time, continue the Cardizem. Transfer to telemetry. Cardiology input appreciated. The CRP is 38 at this time. We will continue the rest of the medications including dexamethasone and antibiotics. Otherwise, a 2D echo with Doppler has been requested. I would also check a set of troponins also. Prognosis guarded because of multiple complex medical issues. Further recommendations to follow. The most recent Covid 19 testing is negative in the rapid assay, but the pneumonia seemed to be definitely related to the ongoing Covid 19 disease process. Overall prognosis guarded. Discussed with the patient at length. Further recommendations to follow. MMODL / IJN: [id number] /
[2020-03-09] MEDS ORDERED: METOPROLOL TARTRATE 50 MG TAB PO STA (16:35)
--- NOTE | 2020-03-09 16:44 | PN ---
PROGRESS NOTE DATE OF SERVICE: 03/09/2020 REASON FOR FOLLOWUP: Pneumonia. INTERVAL HISTORY: The patient did have an episode of atrial fibrillation with RVR and the patient subsequently has been transferred out of the ICU. The patient's fever has resolved. No fever in the last 24 hours. He is breathing slightly comfortably. He did have a cough with decreased intensity. No chest pain, no nausea, no vomiting, no abdominal pain, no diarrhea. PHYSICAL EXAMINATION: Blood pressure 125/77, pulse of 87, temperature 98F, 96% on 2 L nasal cannula. General description is a young male up in the bed in no distress. Respiratory system: Unlabored breathing, decreased breath sounds in the base, with no wheeze. Heart S1, S2. Regular rate and rhythm. Abdomen soft, no tenderness. No guarding, no rigidity. Extremities, no edema of the feet. LABS: Hemoglobin 15.1, WBC 22,000, BUN of 9, creatinine 0.7. Blood culture has been negative so far. Sputum not collected. DIAGNOSTIC IMPRESSION AND PLAN: Patient admitted to hospital with sepsis, source likely right middle lobe pneumonia, likely community-acquired. The patient's fever responded to the Rocephin. Did have now atrial fibrillation with RVR. The white count jumped more likely because of the dexamethasone the patient has been on. Try to obtain sputum and on antibiotics and monitor clinical course closely. MMODL / IJN: [id number] / MTDD
[2020-03-09] MEDS: ACETAMINOPHEN TAB 500 MG TAB PO PRN (19:06)
[2020-03-09] MEDS: METOPROLOL TARTRATE 50 MG TAB PO SCH (23:00)
[2020-03-10] MEDS: DILTIAZEM 125 MG in SODIUM CHLORIDE 0.9% 100 ML IV SCH ×2 (02:00→16:05)
[2020-03-10 05:00] LABS: Basophils % (A) 0 %; Eosinophils # (A) 0.1 k/uL (0-0.7); Eosinophils % (A) 0 %; Lymphocytes # (A) 0.7 k/uL (1.0-4.8); Lymphocytes % (A) 3 %; MCH 30.6 pg (25.0-35.0); MCHC 33.3 g/dL (31.0-37.0); MCV 92.1 fL (80.0-100.0); Mean Platelet Volume 7.9; Monocytes # (A) 0.4 k/uL (0-1.0); Monocytes % (A) 2 %; Neutrophils # (A) 23.3 k/uL (1.3-7.7); Neutrophils % (A) 95 %; Platelet Count 319 k/uL (150-450); RBC 4.56 m/uL (4.30-5.90); RDW 12.5 % (11.5-15.5); WBC 24.6 k/uL (3.8-10.6)
[2020-03-10 05:12] LABS: African American GFR (CKD) >90 (>60 ml/min/1.73 sqM); Anion Gap 4 mmol/L; Blood Urea Nitrogen 12 mg/dL (9-20); Calcium 8.9 mg/dL (8.4-10.2); Carbon Dioxide 29 mmol/L (22-30); Chloride 106 mmol/L (98-107); Glucose 124 mg/dL (74-99); Non-African American GFR(CKD) >90 (>60 ml/min/1.73 sqM); Sodium 139 mmol/L (137-145)
[2020-03-10 05:47] LABS: C Reactive Protein 308.3 mg/L (<10.0)
--- NOTE | 2020-03-10 06:57 | XR ---
EXAMINATION TYPE: XR chest 1V portable DATE OF EXAM: 03/10/2020 CLINICAL HISTORY: Difficulty breathing pneumonia progress study. TECHNIQUE: Single AP portable upright view of the chest is obtained. COMPARISON: Chest x-ray from one day earlier and older studies. FINDINGS: There is persistent consolidation in the right lower lung silhouetting right heart border and right hemidiaphragm. There is improving central vascular congestion. No new mediastinal shift. B ackground low lung volumes. The cardiac silhouette size is mildly enlarged. Patchy left basilar atel ectatic change redemonstrated. The osseous structures remain intact. IMPRESSION: Stable right basilar acute infiltrate and/or atelectasis. Stable patchy left basilar atel ectatic change. Persistent low lung volumes and mild cardiomegaly. Improved central vascular congesti on otherwise no significant interval change from one day earlier.
[2020-03-10] MEDS: IPRATROPIUM-ALBUTEROL 3 ML NEB INHALATION SCH ×2 (07:11→11:13)
--- NOTE | 2020-03-10 08:23 | P.PN ---
Subjective Progress Note Date: 03/10/20 Principal diagnosis: Paroxysmal atrial fibrillation This is a pleasant 29-year-old gentleman with a past medical history significant for history of COVID-19 infection recently who was admitted to the hospital with worsening shortness of breath and he was diagnosed with pneumonia. We consulted to see the patient mainly because of atrial fibrillation with RVR which was a new diagnosed as to the patient. The patient was seen this morning. He is feeling better in terms of shortness of breath. He remains hemodynamically stable and not requiring any vasopressors. He was converted to normal sinus mechanism yesterday. He is still on Cardizem drip which I'm going to discontinue an increase the dose of metoprolol to 50 mg by mouth 3 times a day. An echocardiogram still pending. Objective - Vital Signs Vital signs: Vital Signs Temp 97.8 F 03/10/20 04:00 Pulse 108 H 03/10/20 07:17 Resp 34 H 03/10/20 07:00 BP 107/66 03/10/20 07:00 Pulse Ox 93 L 03/10/20 07:00 Intake & Output 03/09/20 03/10/20 03/10/20 18:59 06:59 18:59 Intake Total 250 365 Output Total 1175 1100 Balance -925 -735 Weight 92 kg Intake: IV 250 240 Sodium Chloride 0.9% 1, 250 240 000 ml @ 130 mls/hr IV . Q7H42M [facility]IE Rx#:[id number] Intake, IV Titration 125 Amount Diltiazem 125 mg In 125 Sodium Chloride 0.9% 100 ml @ 10 MG/HR 10 mls/hr IV .[id number] EBONIE Rx#: [id number] Output: Urine 1175 1100 Other: Voiding Method Bedside Commode Bedside Commode # Voids 1 0 - Constitutional General appearance: Present: no acute distress - Respiratory Respiratory: bilateral: rales - Cardiovascular Rhythm: regular Heart sounds: normal: S1, S2 - Labs CBC & Chem 7: 03/10/20 04:34 03/10/20 04:34 Labs: Abnormal Lab Results - Last 24 Hours (Table) 03/09/20 03/09/20 03/10/20 Range/Units 05:44 13:51 04:34 WBC 24.6 H (3.8-10.6) k/uL Neutrophils # 23.3 H (1.3-7.7) k/uL Lymphocytes # 0.7 L (1.0-4.8) k/uL Creatinine (0.66-1.25) mg/dL Glucose (74-99) mg/dL POC Glucose (mg/dL) 144 H (75-99) mg/dL C-Reactive Protein 38.0 H (0.0-0.8) mg/dL 03/10/20 Range/Units 04:34 WBC (3.8-10.6) k/uL Neutrophils # (1.3-7.7) k/uL Lymphocytes # (1.0-4.8) k/uL Creatinine 0.64 L (0.66-1.25) mg/dL Glucose 124 H (74-99) mg/dL POC Glucose (mg/dL) (75-99) mg/dL C-Reactive Protein 308.3 H (0.0-0.8) mg/dL Microbiology - Last 24 Hours (Table) 03/07/20 09:45 Blood Culture - Preliminary Blood No Growth after 48 hours Assessment and Plan Assessment: Assessment #1 history of pneumonia #2 atrial fibrillation with rapid ventricular response. The patient converted to normal sinus mechanism #3 paroxysmal atrial fibrillation Plan #1 continue oral anticoagulation #2 DC Cardizem IV and increase the dose of metoprolol by mouth #3 follow-up with the patient #4 follow-up with the echo
[2020-03-10] MEDS: METOPROLOL TARTRATE 50 MG TAB PO SCH ×3 (08:52→21:44)
[2020-03-10] MEDS: dexAMETHasone 2 MG TAB PO SCH (08:52)
[2020-03-10] MEDS: ZINC SULFATE 220 MG CAP PO SCH (08:52)
[2020-03-10] MEDS: FAMOTIDINE 20 MG TAB PO SCH ×2 (08:52→20:21)
[2020-03-10] MEDS: APIXABAN 5 MG TAB PO SCH ×2 (08:52→20:21)
[2020-03-10] MEDS: AZITHROMYCIN 500 MG TAB PO SCH (08:52)
[2020-03-10] MEDS: ASCORBIC ACID 500 MG TAB PO SCH (08:53)
[2020-03-10] MEDS: CHOLECALCIFEROL 1,000 UNIT TAB PO SCH (08:53)
--- NOTE | 2020-03-10 10:34 | US ---
EXAMINATION TYPE: US chest DATE OF EXAM: 03/10/2020 COMPARISON: X-ray earlier today. CT 2 days ago. CLINICAL HISTORY: Markings for thoracentesis by pulmonary staff. Right pleural effusion TECHNIQUE: Targeted ultrasound of the posterior bilateral hemithoraces EXAM MEASUREMENTS: Right Pleural Effusion pocket size: 1.6 cm A/P longitudinal view Right skin surface to fluid distance: 3.4 cm A/P Left Pleural Effusion pocket size: 1.5 cm A./P transverse view and was assessed for comparison Right side was not marked for possible thoracentesis outside the dept. Left side was not marked for possible thoracentesis outside the dept. Pulmonologists are able to review the images in the patient?s EMR. Small right and tiny left pleural effusions seen on images saved. More prominent right basilar opacit y on x-ray likely product of atelectasis and/or infiltrate over significant effusion. IMPRESSIONS: As above.
[2020-03-10] MEDS: ALPRAZolam 0.5 MG TAB PO PRN (11:44)
--- NOTE | 2020-03-10 11:59 | P.PN ---
Subjective Progress Note Date: 03/10/20 Principal diagnosis: Right middle lobe community-acquired pneumonia This a very pleasant 29-year-old gentleman who was admitted on 03/07/2020 with complaints of increasing shortness of breath, cough and congestion. He had been having symptoms for 4-5 days prior to his admission. [facility] and was treated with azithromycin, ibuprofen, prednisone without much improvement. He was subsequently admitted with a right midlung community- acquired pneumonia. He is on ceftriaxone and azithromycin along with bronchodilators. He is seen today in follow-up on the regular medical floor. He is resting comfortably in bed. He is having some fever and chills still. Still with a loose productive cough. Temperature 102.4 last evening. Currently afebrile. White count 15.9. Hemoglobin 15.1. ESR 69. Legionella antigen was negative. Influenza negative. Coronavirus not detected. The patient is seen today 03/09/2020 in follow-up on the regular medical floor. He is currently resting comfortably in bed. Awake and alert in no acute distress. He has been having issues with atrial fibrillation with a rapid ventricular response. He's been initiated on oral Cardizem and anticoagulated with Eliquis. Lovenox was discontinued. Echocardiogram is pending. He is maintaining good O2 saturations in the mid 90s on 2 L/m per nasal cannula. Currently afebrile. Blood culture reveals no growth. White count 22.0. Hemoglobin 15.1. Sodium 141. Potassium 4.5. Creatinine 0.7. C-reactive protein 38.0. Today's chest x-ray reveals worsening right basilar acute infiltrate/atelectasis. Mild central vascular congestion. He remains on ceftriaxone and azithromycin. Continue bronchodilators. The patient is seen today 03/10/2020 in follow-up in the intensive care unit. He did develop another episode of atrial fibrillation with a rapid ventricular response. He was subsequently transferred here to the intensive care unit. He is on Cardizem drip at 15 mg per hour. 0.9 normal saline at KVO. He is maintaining O2 saturation in the 90s on 5 L/m per nasal cannula. Presently he is feeling quite well. He states his breathing is better today compared to yesterday. Chest x-ray continues to show significant right lower lobe consolidation/infiltrate. Ultrasound of the right chest revealed minimum fluid at 1.6 cm. Smaller left-sided pleural effusion measuring 1.5 cm. Blood cultures revealing no growth to date. White count 24.6. Hemoglobin 14.0. Lymphocytes 0.7. Sodium 139. Potassium 4.0. Creatinine 0.64. Glucose 124. C-reactive protein 308. BNP 2830. TSH 1.25. Echocardiogram recurrent results pending. He remains on DuoNeb inhalations, ceftriaxone and azithromycin, dexamethasone and vitamin supplements. He is anticoagulated with Eliquis. Objective - Vital Signs Vital signs: Vital Signs Temp 98.1 F 03/10/20 08:00 Pulse 102 H 03/10/20 11:20 Resp 33 H 03/10/20 11:00 BP 121/70 03/10/20 11:00 Pulse Ox 94 L 03/10/20 11:00 Intake & Output 03/09/20 03/10/20 03/10/20 18:59 06:59 18:59 Intake Total 250 365 80 Output Total 1175 1100 0 Balance -925 -735 80 Weight 92 kg Intake: IV 250 240 80 Sodium Chloride 0.9% 1, 250 240 80 000 ml @ 130 mls/hr IV . Q7H42M [facility] Rx#:[id number] Intake, IV Titration 125 Amount Diltiazem 125 mg In 125 Sodium Chloride 0.9% 100 ml @ 10 MG/HR 10 mls/hr IV .[id number] EBONIE Rx#: [id number] Output: Urine 1175 1100 0 Other: Voiding Method Bedside Commode Bedside Commode Bedside Commode # Voids 1 0 - Exam GENERAL EXAM: Alert, pleasant 29-year-old gentleman, on 5 L nasal cannula, comfortable in no apparent distress. HEAD: Normocephalic. EYES: Normal reaction of pupils, equal size. NOSE: Clear with pink turbinates. THROAT: No erythema or exudates. NECK: No masses, no JVD. CHEST: No chest wall deformity. LUNGS: Equal air entry with scattered rhonchi over the right lung, diminished, crackles in the bases. CVS: S1 and S2 normal with no audible murmur, irregular rhythm. Tachycardic. ABDOMEN: No hepatosplenomegaly, normal bowel sounds, no guarding or rigidity. SPINE: No scoliosis or deformity SKIN: No rashes CENTRAL NERVOUS SYSTEM: No focal deficits, tone is normal in all 4 extremities. EXTREMITIES: There is no peripheral edema. No clubbing, no cyanosis. Peripheral pulses are intact. - Labs CBC & Chem 7: 03/10/20 04:34 03/10/20 04:34 Labs: Abnormal Lab Results - Last 24 Hours (Table) 03/09/20 03/10/20 03/10/20 Range/Units 13:51 04:34 04:34 WBC 24.6 H (3.8-10.6) k/uL Neutrophils # 23.3 H (1.3-7.7) k/uL Lymphocytes # 0.7 L (1.0-4.8) k/uL Creatinine 0.64 L (0.66-1.25) mg/dL Glucose 124 H (74-99) mg/dL POC Glucose (mg/dL) 144 H (75-99) mg/dL C-Reactive Protein 308.3 H (<10.0) mg/L Microbiology - Last 24 Hours (Table) 03/07/20 09:45 Blood Culture - Preliminary Blood No Growth after 48 hours Assessment and Plan Assessment: 1 Acute community-acquired right midlung pneumonia, failed outpatient therapy 2 Leukocytosis secondary to above 3 Febrile illness secondary to above 4 New onset atrial fibrillation with rapid ventricular response 5 History of CoVID 19 infection one month ago Plan: The patient was seen and evaluated by Dr. Hilario Chest x-ray reveals worsening infiltrate in the right lung, mild vascular congestion Oxygenation requirements increased to 5 L Ultrasound of the right chest revealed minimal fluid at 1.6 cm We will plan for bronchoscopy with BAL of the right lung tomorrow Nothing by mouth after midnight Initiated on IV Cardizem and anticoagulated with Eliquis Echocardiogram results pending Continue bronchodilators and antibiotics Continue incentive spirometer and encourage cough and deep breathing exercises Repeat chest x-ray in a.m. We will continue to follow I, the cosigning physician, performed a history & physical examination of the patient. Lungs sounds with few scattered rhonchi in the right lung, bibasilar crackles, diminished. Maintaining good O2 saturations in the 90s on 5 L/m per nasal cannula. I discussed the assessment and plan of care with my nurse practitioner, Misti Chu. I attest to the above note as dictated by her.
[2020-03-10] MEDS ORDERED: diphenhydrAMINE 25 MG CAP PO PRN (16:00)
--- NOTE | 2020-03-10 17:58 | PN ---
PROGRESS NOTE DATE OF SERVICE: 03/10/2020 This 29-year-old gentleman being followed by Dr. Zepeda in the outpatient setting was admitted with possible COVID-19 pneumonia. The pneumonia is lobar pattern. The chest x-ray showed some worsening. The patient also had cardiac irregularity and sinus tachycardia and atrial fibrillation with fast ventricular rate, which was reversed at this time. Multiple consultants are following the patient. Patient closely monitored in ICU. A chest ultrasound showed no evidence of any significant pleural effusion and only slight pleural effusion was noted about 1.[address] Hilario is planning a bronchoscopy. Past medical history reviewed. REVIEW OF SYSTEMS: Cardiovascular system: No angina. RESPIRATORY: As mentioned earlier. GI as mentioned earlier. : No dysuria. NERVOUS SYSTEM: No numbness or weakness. CURRENT MEDICATIONS: Reviewed and include: Tylenol. Xanax, Eliquis, Zithromax, Rocephin, Pepcid. Motrin. Narcan. PHYSICAL EXAMINATION: Patient is alert, oriented x3. Pulse is 107. Blood pressure 100/70, respiration 18, temperature normal. Pulse ox 92% on 4 L. HEENT: Conjunctivae normal. NECK: No JVD. CARDIOVASCULAR: S1, S2. Respirations: Breath sounds diminished in the bases. Bilateral scattered rhonchi and crackles. ABDOMEN: Soft. Nontender. NERVOUS SYSTEM: No focal deficits. LAB STUDIES: WBC 24.6. Otherwise, C-reactive protein is 308.03. TSH is normal. ASSESSMENT: 1. Acute right lower lobe pneumonia possibly super added bacterial pneumonia possibly gram-negative pneumonia with possible sepsis present on admission. 2. Recent acute COVID-19 infection. 3. Atrial fibrillation with fast ventricular rate, paroxysmal, as well as acute sinus tachycardia, possibly secondary to COVID-19. 4. Hyponatremia. 5. Bilateral mild pleural effusions. 6. Increased WBC. 7. CRP. 8. Elevated procalcitonin. 9. Increased ferritin. 10.History of gastroesophageal reflux disease. 11.History of hernia. 12.FULL CODE. RECOMMENDATIONS AND DISCUSSION: Recommend to continue current medications, symptomatic treatment. Otherwise at this time I recommend continue the antibiotics. Further evaluation by Dr. Hilario. RSV and Covid 19 testing were negative. Covid 19 send out tests are probably not available so far. Otherwise pleural effusions noted. Sodium has improved at this time. We will continue to monitor. Empiric antibiotics will be given. Mycoplasma antibodies are still pending at this time. The white count is elevated to 24.6. Prognosis guarded. Further recommendations to follow. MMODL / IJN: [id number] /
[2020-03-10] MEDS: CEFEPIME 2 GM in SODIUM CHLORIDE 0.9% 100 ML IVPB SCH (21:43)
[2020-03-10] MEDS: diphenhydrAMINE 25 MG CAP PO PRN (21:44)
--- NOTE | 2020-03-10 21:50 | PN ---
PROGRESS NOTE DATE OF SERVICE: 03/10/2020 REASON FOR FOLLOWUP: Pneumonia. INTERVAL HISTORY: The patient is currently afebrile. The patient is breathing slightly comfortably. Heart rate is controlled. Denies any chest pain. He did have a cough, though decreased intensity, not bringing up any sputum. No nausea, no vomiting, no abdominal pain, no diarrhea. PHYSICAL EXAMINATION: Blood pressure 126/75 with a pulse of 90, temperature 98.9, he is 94% on 4 L nasal cannula. General description is a young male lying in bed in no distress. Respiratory system: Unlabored breathing, decreased intensity of breath sounds, occasional wheeze. Heart S1, S2, regular. Abdomen soft, no tenderness. LABS: Hemoglobin is 14.3, white count 4.6, BUN of 12, creatinine 0.61. CRP is up to 308. DIAGNOSTIC IMPRESSION AND PLAN: Patient admitted to the hospital with pneumonia, possibly community-acquired. The patient now with atrial fibrillation with RVR, has been transferred to the ICU and did have worsening of his white count. Currently on steroids. Will broaden antibiotic coverage to cefepime 2 grams q.12 hours. Continue with Zithromax. Possible bronchoscopy in the morning. Continue supportive care. MMODL / IJN: [id number] /
[2020-03-11] MEDS: DILTIAZEM 125 MG in SODIUM CHLORIDE 0.9% 100 ML IV SCH ×3 (04:16→23:41)
[2020-03-11] MEDS: diphenhydrAMINE 25 MG CAP PO PRN ×2 (05:19→14:31)
[2020-03-11 05:51] LABS: Basophils # (A) 0.1 k/uL (0-0.2); Basophils % (A) 0 %; Eosinophils # (A) 0.1 k/uL (0-0.7); Eosinophils % (A) 0 %; HCT 44.8 % (39.0-53.0); HGB 14.2 gm/dL (13.0-17.5); Lymphocytes % (A) 4 %; MCH 29.6 pg (25.0-35.0); MCHC 31.7 g/dL (31.0-37.0); MCV 93.3 fL (80.0-100.0); Mean Platelet Volume 7.7; Monocytes # (A) 0.6 k/uL (0-1.0); Monocytes % (A) 2 %; Neutrophils # (A) 26.3 k/uL (1.3-7.7); Neutrophils % (A) 93 %; Platelet Count 425 k/uL (150-450); RBC 4.81 m/uL (4.30-5.90); RDW 13.1 % (11.5-15.5); WBC 28.2 k/uL (3.8-10.6)
[2020-03-11 06:03] LABS: ALT 162 U/L (4-49); AST 105 U/L (17-59); African American GFR (CKD) >90 (>60 ml/min/1.73 sqM); Albumin 2.8 g/dL (3.5-5.0); Alkaline Phosphatase 128 U/L (38-126); Anion Gap 4 mmol/L; Blood Urea Nitrogen 18 mg/dL (9-20); Calcium 8.7 mg/dL (8.4-10.2); Carbon Dioxide 29 mmol/L (22-30); Chloride 106 mmol/L (98-107); Glucose 115 mg/dL (74-99); Non-African American GFR(CKD) >90 (>60 ml/min/1.73 sqM); Sodium 139 mmol/L (137-145); Total Bilirubin 0.6 mg/dL (0.2-1.3); Total Protein 5.8 g/dL (6.3-8.2)
--- NOTE | 2020-03-11 07:12 | XR ---
EXAMINATION TYPE: XR chest 1V portable DATE OF EXAM: 03/11/2020 CLINICAL HISTORY: Difficulty breathing and right lower lobe infiltrate progress study. TECHNIQUE: Single AP portable upright view of the chest is obtained. COMPARISON: Chest x-ray from one day earlier and older studies FINDINGS: There is persistent consolidation in the right lower lung silhouetting right hemidiaphragm . No new mediastinal shift. Background low lung volumes. The cardiac silhouette size is stable and m ildly enlarged. Patchy left basilar opacity redemonstrated. The osseous structures remain intact. IMPRESSION: Stable right lower lobe acute infiltrate and/or atelectasis. Stable patchy left basilar a telectatic and/or infiltrate. Persistent low lung volumes and mild cardiomegaly. No significant jaimes e from most recent x-ray.
[2020-03-11] MEDS: METOPROLOL TARTRATE 50 MG TAB PO SCH ×2 (08:25→20:22)
[2020-03-11] MEDS: FAMOTIDINE 20 MG TAB PO SCH ×2 (08:25→20:22)
[2020-03-11] MEDS: CEFEPIME 2 GM in SODIUM CHLORIDE 0.9% 100 ML IVPB SCH ×2 (08:25→20:23)
[2020-03-11] MEDS: AZITHROMYCIN 500 MG TAB PO SCH (08:26)
--- NOTE | 2020-03-11 08:35 | P.PN ---
Subjective Progress Note Date: 03/11/20 Principal diagnosis: Paroxysmal atrial fibrillation This is a pleasant 29-year-old gentleman with a past medical history significant for history of COVID-19 infection recently who was admitted to the hospital with worsening shortness of breath and he was diagnosed with pneumonia. We consulted to see the patient mainly because of atrial fibrillation with RVR which was a new diagnosed as to the patient. The patient was seen today February [id number]. He states "I feel great". Apparently the shortness of breath is better. No chest pain or chest discomfort. Unfortunately the chest x-ray continues to show right lower lobe infiltrate and the patient is in process of having bronchoscopy later on today. Hemodynamically he is stable. He has been maintaining normal sinus mechanism with intermittent episodes of A. fib. Having said that going to increase the dose of metoprolol to 100 mg by mouth twice a day. Otherwise we'll continue the rest of his current medical regimen including oral anticoagulation. From the cardiovascular standpoint overview, we will follow-up with the patient on when necessary case Objective - Vital Signs Vital signs: Vital Signs Temp 98.2 F 03/11/20 04:00 Pulse 78 03/11/20 07:00 Resp 20 03/11/20 07:00 BP 111/81 03/11/20 07:00 Pulse Ox 93 L 03/11/20 07:00 Intake & Output 03/10/20 03/11/20 03/11/20 18:59 06:59 18:59 Intake Total 330 790 20 Output Total 0 375 Balance 330 415 20 Weight 93.3 kg Intake: IV 120 340 20 0.9ns 20 240 20 Cefepime 2 gm In Sodium 100 Chloride 0.9% 100 ml @ 25 mls/hr IVPB Q12HR [facility] Rx #:[id number] Sodium Chloride 0.9% 1, 100 000 ml @ 130 mls/hr IV . Q7H42M [facility] Rx#:[id number] Intake, IV Titration 110 Amount cefTRIAXone 1 gm In 110 Sodium Chloride 0.9% 50 ml @ 100 mls/hr IVPB Q24HR [facility]ON[facility] Rx#:[id number] Oral 100 450 Output: Urine 0 375 Other: Voiding Method Bedside Commode Bedside Commode Urinal # Voids 1 0 - Constitutional General appearance: Present: no acute distress - Respiratory Respiratory: right: diminished - Cardiovascular Rhythm: regular Heart sounds: normal: S1, S2 - Labs CBC & Chem 7: 03/11/20 05:38 03/11/20 05:38 Labs: Abnormal Lab Results - Last 24 Hours (Table) 03/11/20 03/11/20 03/11/20 Range/Units 05:30 05:38 05:38 WBC 28.2 H (3.8-10.6) k/uL Neutrophils # 26.3 H (1.3-7.7) k/uL Glucose 115 H (74-99) mg/dL AST 105 H (17-59) U/L ALT 162 H (4-49) U/L Alkaline Phosphatase 128 H (38-126) U/L C-Reactive Protein 178.5 H (<10.0) mg/L Total Protein 5.8 L (6.3-8.2) g/dL Albumin 2.8 L (3.5-5.0) g/dL Microbiology - Last 24 Hours (Table) 03/07/20 09:45 Blood Culture - Preliminary Blood No Growth after 72 hours Assessment and Plan Assessment: Assessment #1 history of pneumonia #2 atrial fibrillation with rapid ventricular response. The patient converted to normal sinus mechanism #3 paroxysmal atrial fibrillation Plan #1 increase the dose of metoprolol 200 mg by mouth twice a day #2 continue oral anticoagulation #3 follow-up with the patient on when necessary
--- NOTE | 2020-03-11 09:31 | ECHOF ---
Referral Reason:rapid heart rate MEASUREMENTS -------- HEIGHT: 152.4 cm WEIGHT: 91.6 kg BP: IVSd: 1.1 cm (0.6 - 1.1) LVIDd: 5.3 cm (3.9 - 5.3) LVPWd: 1.2 cm (0.6 - 1.1) IVSs: 1.6 cm LVIDs: 3.2 cm LVPWs: 1.3 cm RVIDd: 2.8 cm (< 3.3) LAESV Index (A-L): 33.50 ml/m Ao Diam: 3.5 cm (2.0 - 3.7) AV Cusp: 2.3 cm (1.5 - 2.6) EPSS: 0.4 cm MV E Terry: 1.08 m/s MV DecT: 154 ms MV A Terry: 1.09 m/s MV E/A Ratio: 1.00 RAP: 5.00 mmHg RVSP: 26.04 mmHg MV EF SLOPE: 158.37 mm/s (70 - 150) MV EXCURSION: 21.87 mm (> 18.000) TAPSE: 26.45 mm FINDINGS -------- This was a technically good study. Covid positive patient. LV size, wall thickness and systolic function are normal, with an EF greater than 55%. The left scott tricular size is normal. The right ventricle is normal in size. The left atrial size is normal. The right atrial size is normal. The aortic valve is trileaflet, and appears structurally normal. No aortic stenosis or regurgitation. Mild mitral regurgitation is present. Mild tricuspid regurgitation present. Right ventricular systolic pressure is normal at < 35 mmHg. There is no pulmonic regurgitation present. The aortic root size is normal. There is a small, generalized pericardial effusion present. CONCLUSIONS -------- 1. Covid positive patient. 2. LV size, wall thickness and systolic function are normal, with an EF greater than 55%. 3. The left ventricular size is normal. 4. The right ventricle is normal in size. 5. The left atrial size is normal. 6. The right atrial size is normal. 7. The aortic valve is trileaflet, and appears structurally normal. No aortic stenosis or regurgitati on. 8. Mild mitral regurgitation is present. 9. Mild tricuspid regurgitation present. 10. There is no pulmonic regurgitation present. 11. The aortic root size is normal. 12. There is a small, generalized pericardial effusion present. INTERNIST: Sheila Goodman RDCS
--- NOTE | 2020-03-11 12:29 | PN ---
PROGRESS NOTE PULMONARY/CRITICAL CARE PROGRESS NOTE: DATE OF SERVICE: 03/11/2020 29-year-old gentleman who was admitted to the hospital with a diagnosis of acute community-acquired pneumonia involving the right middle lobe and right lower lobe. He failed outpatient therapy. The patient did have a positive COVID test back in early January. Anyway, the patient, since he has been here in the hospital, has developed a couple of issues including atrial fibrillation with RVR, being followed by Cardiology as well as volume loss in that right lung. Today, he is going to undergo bronchoscopy. He otherwise is relatively healthy. He is feeling a bit better today compared to how he has been feeling. He is currently on 4 L nasal cannula and saline IV KVO. Cardiology has increase his Lopressor to 100 mg twice a day for rate control. PHYSICAL EXAMINATION: VITAL SIGNS: Current vital signs are reviewed. Temperature 97.7, heart rate 85, respiratory rate 23, blood pressure 119/83, mean 95, 4 L saturations 96%. Appears in no acute distress. HEENT: Examination is grossly unremarkable. NECK: Supple. Full range of motion. No adenopathy. Neck veins are flat. CARDIOVASCULAR: Examination reveals regular rhythm and rate. He is in sinus rhythm. Heart rate 85. S1, S2 normal. LUNGS: Reveal crackles at the right lung base. There are diminished breath sounds on the right side. A few scattered rhonchi on the right side. Left lung is clear. ABDOMEN: Soft. Bowel sounds are heard. EXTREMITIES are intact. No cyanosis, clubbing, or edema. SKIN: Without rash. NEUROLOGIC: Examination is brief but nonfocal. White count 28.2, hemoglobin 14.2, hematocrit 44.8, platelet count 425,000. Sodium 139, potassium 4, chloride 106, CO2 29, anion gap is 4. BUN and creatinine were 18 and 0.66. Glucose was 115. AST 105, ALT 162, alkaline phosphatase 128. C-reactive protein 179, albumin 2.8. TSH was normal. N-terminal proBNP 2830. Microbiology is currently negative. A chest x-ray from today continues to show right lower lobe/right middle lobe infiltrate with atelectasis. CURRENT MEDICATIONS: Reviewed. The patient is currently on Xanax, Eliquis, Zithromax, cefepime, Benadryl, famotidine, ibuprofen, metoprolol, Narcan. ASSESSMENT: 1. Community-acquired pneumonia, right middle lobe/right lower lobe with volume loss and anticipated bronchoscopy today. 2. Atrial fibrillation with rapid ventricular response, currently being managed by Cardiology. 3. A relatively recent history of COVID-19 infection in early January. The patient did not require any hospitalization or any particular treatment at that time. PLAN: The patient will have bronchoscopy today. His oxygen requirements today at 4 L. He is being managed by cardiology as it relates to his atrial fibrillation. His rate has been more stable as is his rhythm. We will continue to follow. Prognosis is guarded. No additional recommendations are made. MMODL / IJN: [id number] /
[2020-03-11] MEDS ORDERED: PROPOFOL 10 MG/ML 20 ML VIAL IV ONE (12:51)
[2020-03-11] MEDS ORDERED: MIDAZOLAM 2 MG/2 ML VIAL ONE (12:51)
[2020-03-11] MEDS ORDERED: SUCCINYLCHOLINE CHLORIDE 100 MG/5 ML SYR IV ONE (12:51)
[2020-03-11] MEDS ORDERED: IV FLUID CONTINUATION 1,000 ML IV ONE (13:01)
[2020-03-11] MEDS: APIXABAN 5 MG TAB PO SCH ×2 (14:31→20:23)
[2020-03-11] MEDS: IBUPROFEN 400 MG TAB PO PRN ×2 (16:19→23:53)
--- NOTE | 2020-03-11 17:17 | PN ---
PROGRESS NOTE DATE OF SERVICE: 03/11/2020 This 29-year-old gentleman who was admitted with acute right lower lobe pneumonia, possibly bacterial pneumonia is being closely monitored. The patient also had tachycardia and paroxysmal atrial fibrillation. Patient monitored closely in the ICU. Bronchoscopy is being planned today by Dr. Hilario. PAST MEDICAL HISTORY: Reviewed. REVIEW OF SYSTEMS: CARDIOVASCULAR: No angina. RESPIRATORY: As mentioned earlier. GI: As mentioned earlier. NERVOUS SYSTEM: No numbness or weakness CURRENT MEDICATIONS: Reviewed include Xanax, Eliquis, Zithromax, cefepime, Benadryl, Pepcid, Narcan. PHYSICAL EXAMINATION: Patient is alert, oriented x3. Pulse is 103, blood pressure 120/82, respiration 30, temperature 97.7, pulse ox 98% on 4 L. HEENT: Conjunctivae normal. Oral mucosa moist. NECK: No jugular venous distention. No lymph node enlargement. CARDIOVASCULAR: S1, S2, muffled. No S3, no S4, RESPIRATORY: Diminished breath sounds at the bases. Bilateral scattered rhonchi and crackles. ABDOMEN: Soft, nontender. NERVOUS SYSTEM: No focal motor or sensory deficits. LAB STUDIES: WBC 28.2, hemoglobin 14.2. AST/ALT noted, elevated. ASSESSMENT: 1. Acute right lower lobe pneumonia, possibly bacterial pneumonia, possibly gram- negative pneumonia with possible sepsis, present on admission. 2. Recent acute COVID-19 infection. 3. Atrial fibrillation with fast ventricular rate, paroxysmal, as well as acute sinus tachycardia, possibly secondary to COVID-19. 4. Hyponatremia. 5. Bilateral mild pleural effusion. 6. Increased WBC. 7. Elevated LFTs, possibly secondary to COVID-19. 8. CRP. 9. Elevated procalcitonin. 10.Increased ferritin. 11.History of gastroesophageal reflux disease. 12.History of hiatal hernia. 13.FULL CODE. RECOMMENDATIONS AND DISCUSSION: Recommend to continue current management and symptomatic treatment. Otherwise, at this time repeat labs continue the empiric antibiotics. Continue the rest of medications. Guarded prognosis because of multiple complex medical issues. Further recommendations to follow. Mycoplasma antibody is pending at this time further: MMODL / IJN: [id number] / MTDD
[2020-03-11 17:48] LABS: Appearance,BF Hazy; Color,BF Pink; Mononuclear WBC,Body Fluid 72 %; Nucleated Cells, Body Fluid 1170 /uL; Polynuclear WBC,Body Fluid 28 %; RBC, Body Fluid 2610 /uL
--- NOTE | 2020-03-11 20:20 | PCN ---
PROCEDURE NOTE PULMONARY/CRITICAL CARE PROCEDURE NOTE: PROCEDURE PERFORMED: A bronchoscopy airway examination, therapeutic lavage, BAL right middle lobe. PREOPERATIVE DIAGNOSIS: Right middle lobe pneumonia. POSTOP DIAGNOSIS: Right middle lobe pneumonia. OPERATORS: Dr. Hilario and Dr. Chu. There was informed consent and universal timeout. Mariama Adams was the [employer]OL[employer] COURSE ASSISTANT and Dr. Trejo was anesthesiologist. They gave a general anesthesia to this patient. The patient's procedure was done in room #1. DESCRIPTION OF PROCEDURE: After the patient was adequately sedated and anesthetized, the bronchoscope was inserted through the bronchoscope adapter connected to the endotracheal tube. There was a thorough inspection of both lungs. The right upper lobe and its 3 segments, right middle lobe and its 2 segments, the right lower lobe and its 5 segments, the left upper lobe proper and its 2 segments, the lingula and its 2 segments and the left lower lobe and its 4 segments were all evaluated. Of note, was the fact that there were significant erythema and hyperemia in the right middle lobe. Some mucus was noted there. There was no dominant mass or tumor. There was no bleeding. The rest of the airways looked relatively normal. The mucosa was just very mild erythematous throughout. There was no significant mucus plugging noted. The bronchoscope was wedged into the right middle lobe. The BAL took place. Thirty mL was recovered. The patient tolerated the procedure well. The fluid will be sent for analysis including cytology, and microbiology. There was no immediate complication. The patient will be recovered. I did give the findings to the patient's , Mami, who works in the intensive care unit. The patient will make his way back to the intensive care unit after being recovered. Again there was no immediate complication or issues. MMODL / IJN: [id number] / MTDD
[2020-03-11] MEDS: ALPRAZolam 0.5 MG TAB PO PRN (20:28)
--- NOTE | 2020-03-11 21:50 | PN ---
PROGRESS NOTE DATE OF SERVICE: 03/11/2020 REASON FOR FOLLOWUP: Pneumonia. INTERVAL HISTORY: The patient is currently afebrile. The patient is status post bronchoscopy. Patient tolerated his procedure and is breathing more comfortably. Denies any chest pain. Did have a cough, not bringing any sputum. No nausea. No vomiting. No abdominal pain or diarrhea. PHYSICAL EXAMINATION: Blood pressure 107/69, pulse of 110, temperature is 97.7. He is 96% on 4 L nasal cannula. General description is a young male lying in bed in no distress. Respiratory system: Unlabored breathing. Coarse breath sounds bilaterally. No wheeze. HEART: S1, S2. Regular rate and rhythm. ABDOMEN: Soft, no tenderness. LABS: Hemoglobin is 14.1, white count 28.2, BUN of 18, creatinine 0.66. DIAGNOSTIC IMPRESSION AND PLAN: Patient admitted to the hospital with pneumonia. This patient subsequently did have worsening of his respiratory status and plus-minus component of atrial fibrillation with RVR. The patient is status post bronchoscopy. Those cultures will be followed. Continue cefepime and Zithromax and monitor clinical course closely. MMODL / IJN: [id number] /
[2020-03-12] MEDS: ACETAMINOPHEN TAB 325 MG TAB PO PRN ×2 (02:08→16:50)
[2020-03-12] MEDS: diphenhydrAMINE 25 MG CAP PO PRN ×2 (02:08→20:25)
[2020-03-12 03:35] LABS: Mycoplasma IgG Antibody (EIA) 2.1 INDEX (<=0.90); Mycoplasma IgM Antibody 0.42 INDEX (<=0.90)
[2020-03-12 03:49] LABS: ALT 181 U/L (4-49); AST 84 U/L (17-59); African American GFR (CKD) >90 (>60 ml/min/1.73 sqM); Albumin 2.5 g/dL (3.5-5.0); Alkaline Phosphatase 147 U/L (38-126); Anion Gap 5 mmol/L; Blood Urea Nitrogen 18 mg/dL (9-20); Calcium 8.1 mg/dL (8.4-10.2); Carbon Dioxide 26 mmol/L (22-30); Chloride 103 mmol/L (98-107); Glucose 103 mg/dL (74-99); Non-African American GFR(CKD) >90 (>60 ml/min/1.73 sqM); Potassium 3.6 mmol/L (3.5-5.1); Sodium 134 mmol/L (137-145); Total Protein 5.4 g/dL (6.3-8.2)
[2020-03-12 03:51] LABS: Basophils # (A) 0.1 k/uL (0-0.2); Basophils % (A) 0 %; Eosinophils # (A) 0.3 k/uL (0-0.7); Eosinophils % (A) 1 %; HCT 44.2 % (39.0-53.0); HGB 13.9 gm/dL (13.0-17.5); Lymphocytes # (A) 1.4 k/uL (1.0-4.8); Lymphocytes % (A) 5 %; MCH 29.5 pg (25.0-35.0); MCHC 31.5 g/dL (31.0-37.0); MCV 93.8 fL (80.0-100.0); Mean Platelet Volume 7.9; Monocytes # (A) 0.3 k/uL (0-1.0); Monocytes % (A) 1 %; Neutrophils % (A) 92 %; Platelet Count 396 k/uL (150-450); RBC 4.71 m/uL (4.30-5.90); RDW 13.3 % (11.5-15.5); WBC 27.3 k/uL (3.8-10.6)
[2020-03-12] MEDS ORDERED: Potassium Replacement Protocol 1 EACH MISC MISCELLANE PRN (06:45)
[2020-03-12] MEDS ORDERED: POTASSIUM CHLORIDE ER 20 MEQ TAB.ER PO SCH (07:00)
--- NOTE | 2020-03-12 07:51 | XR ---
EXAMINATION TYPE: XR chest 1V portable DATE OF EXAM: 03/12/2020 Comparison: 03/11/2020 Clinical History: 29-year-old male pneumonia Findings: Heart borderline enlarged. Continued elevation right hemidiaphragm with some patchy right basilar opa [place]. Mild interstitial prominence is unchanged. Minimal patchy density at the left base is also tremaine lar. Impression: 1. Borderline cardiomegaly redemonstrated. 2. Continued asymmetric elevation right hemidiaphragm with prominent right basilar consolidation. 3. Minimal patchy atelectasis/infiltrate at the left base is also similar.
[2020-03-12] MEDS: APIXABAN 5 MG TAB PO SCH ×2 (08:34→20:25)
[2020-03-12] MEDS: METOPROLOL TARTRATE 50 MG TAB PO SCH ×2 (08:44→20:25)
[2020-03-12] MEDS: AZITHROMYCIN 500 MG TAB PO SCH (08:44)
[2020-03-12] MEDS: FAMOTIDINE 20 MG TAB PO SCH ×2 (08:44→20:26)
[2020-03-12] MEDS: CEFEPIME 2 GM in SODIUM CHLORIDE 0.9% 100 ML IVPB SCH ×2 (08:44→20:26)
[2020-03-12] MEDS: DILTIAZEM 125 MG in SODIUM CHLORIDE 0.9% 100 ML IV SCH (12:51)
--- NOTE | 2020-03-12 13:02 | P.PN ---
Subjective Progress Note Date: 03/12/20 Principal diagnosis: Acute community-acquired pneumonia This a very pleasant 29-year-old gentleman who was admitted on 03/07/2020 with complaints of increasing shortness of breath, cough and congestion. He had been having symptoms for 4-5 days prior to his admission. [facility] and was treated with azithromycin, ibuprofen, prednisone without much improvement. He was subsequently admitted with a right midlung community- acquired pneumonia. He is on ceftriaxone and azithromycin along with bronchodilators. He is seen today in follow-up on the regular medical floor. He is resting comfortably in bed. He is having some fever and chills still. Still with a loose productive cough. Temperature 102.4 last evening. Currently afebrile. White count 15.9. Hemoglobin 15.1. ESR 69. Legionella antigen was negative. Influenza negative. Coronavirus not detected. The patient is seen today 03/09/2020 in follow-up on the regular medical floor. He is currently resting comfortably in bed. Awake and alert in no acute distress. He has been having issues with atrial fibrillation with a rapid ventricular response. He's been initiated on oral Cardizem and anticoagulated with Eliquis. Lovenox was discontinued. Echocardiogram is pending. He is maintaining good O2 saturations in the mid 90s on 2 L/m per nasal cannula. Currently afebrile. Blood culture reveals no growth. White count 22.0. Hemoglobin 15.1. Sodium 141. Potassium 4.5. Creatinine 0.7. C-reactive protein 38.0. Today's chest x-ray reveals worsening right basilar acute i nfiltrate/atelectasis. Mild central vascular congestion. He remains on ceftriaxone and azithromycin. Continue bronchodilators. The patient is seen today 03/10/2020 in follow-up in the intensive care unit. He did develop another episode of atrial fibrillation with a rapid ventricular response. He was subsequently transferred here to the intensive care unit. He is on Cardizem drip at 15 mg per hour. 0.9 normal saline at KVO. He is maintaining O2 saturation in the 90s on 5 L/m per nasal cannula. Presently he is feeling quite well. He states his breathing is better today compared to yes terday. Chest x-ray continues to show significant right lower lobe consolidation/infiltrate. Ultrasound of the right chest revealed minimum fluid at 1.6 cm. Smaller left-sided pleural effusion measuring 1.5 cm. Blood cultures revealing no growth to date. White count 24.6. Hemoglobin 14.0. Lym phocytes 0.7. Sodium 139. Potassium 4.0. Creatinine 0.64. Glucose 124. C- reactive protein 308. BNP 2830. TSH 1.25. Echocardiogram recurrent results pending. He remains on DuoNeb inhalations, ceftriaxone and azithromycin, dexamethasone and vitamin supplements. He is anticoagulated with Eliquis. Reevaluated today on 03/12/2020 patient remains in the ICU. He is on room air at present, O2 saturations 98%, patient is being treated for pneumonia, community- acquired, underwent a bronchoscopy on 03/11/2020, and it was basically nondiagnostic so far. Chest x-ray is showing some improvement and better aeration to the right lower lobe. Patient remains on antibiotics and today I recommended urine for Legionella antigen. His last cold with test was positive on 02/05 however the patient tested negative this admission. Patient is complaining of cough, the cough is productive with whitish phlegm, continues to have a low-grade fever of 100.1. IV fluid is at KVO. Again the patient is hemodynamically stable. Continues to have leukocytosis with WBC count 27.3 hemoglobin is 13.9. Electrolytes are normal renal profile is normal Objective - Vital Signs Vital signs: Vital Signs Temp 97.8 F 03/12/20 12:00 Pulse 101 H 03/12/20 12:00 Resp 17 03/12/20 12:00 BP 100/61 03/12/20 12:00 Pulse Ox 94 L 03/12/20 12:00 Intake & Output 03/11/20 03/12/20 03/12/20 18:59 06:59 18:59 Intake Total 970 480 500 Output Total 325 500 Balance 970 155 0 Weight 94 kg Intake: IV 470 240 100 0.9ns 220 240 100 Oral 500 240 400 Output: Urine 325 500 Other: Voiding Method Bedside Commode Bedside Commode Urinal Urinal # Voids 1 2 # Bowel Movements 2 - Exam Physical Exam: Revealed 29-year-old white male pleasant in no distress on room air. Head: Atraumatic, normocephalic. HEENT:[Neck is supple.] [No neck masses.] [No thyromegaly.] [No JVD.] Chest: [Diminished breath sounds and dullness at the right base. Fine crackles heard. Cardiac Exam: [Normal S1 and S2, no S3 gallop, no murmur.] Abdomen: [Soft, nontender, no megaly, no rebound, no guarding, normal bowel sounds.] Extremities: [No clubbing, no edema, no cyanosis.] Neurological Exam: [No focal neurologic deficit.] Alert and oriented 3. Psychiatric: Normal mood, affect and normal mental status examination. Skin: No rashes. - Labs CBC & Chem 7: 03/12/20 03:06 03/12/20 03:06 Labs: Abnormal Lab Results - Last 24 Hours (Table) 03/08/20 03/12/20 03/12/20 Range/Units 06:23 03:06 03:06 WBC 27.3 H (3.8-10.6) k/uL Neutrophils # 25.0 H (1.3-7.7) k/uL Sodium 134 L (137-145) mmol/L Glucose 103 H (74-99) mg/dL Calcium 8.1 L (8.4-10.2) mg/dL AST 84 H (17-59) U/L ALT 181 H (4-49) U/L Alkaline Phosphatase 147 H (38-126) U/L Total Protein 5.4 L (6.3-8.2) g/dL Albumin 2.5 L (3.5-5.0) g/dL Mycoplasma pneumon IgG 2.10 H (<=0.90) INDEX Microbiology - Last 24 Hours (Table) 03/07/20 09:45 Blood Culture - Preliminary Blood No Growth after 120 hours 03/11/20 10:10 Gram Stain - Preliminary Sputum Sputum Culture - Preliminary 03/11/20 13:00 Gram Stain - Preliminary Bronchoalviolar Lavage - Right Bronchial Washings Culture - Preliminary 03/11/20 13:00 Acid Fast Bacilli Culture - Preliminary Bronchoalviolar Lavage - Right 03/11/20 13:00 Fungal Culture - Preliminary Bronchoalviolar Lavage - Right Assessment and Plan Assessment: Impression: Acute community-acquired pneumonia involving the right lobe and right lower lobe. Acute leukocytosis secondary to pneumonia. Acute febrile illness secondary to above. History of covid 19 infection 1 month ago. Recommendation: Continue present course of treatment including antibiotics, bronchodilators, Continue incentive spirometry. So far the cultures from the bronchoscopy are nondiagnostic. Ultrasound of the chest showed no significant fluid to drain. Titrate oxygenation down accordingly maintain O2 saturation above 90%. Consider transferring the patient out of the ICU in the next 24 hours. We'll continue to follow. Time with Patient: Less than 30
--- NOTE | 2020-03-12 15:22 | PN ---
PROGRESS NOTE DATE OF SERVICE: 03/12/2020. This 29-year-old gentleman who was admitted with acute right lower lobe pneumonia possibly COVID pneumonia is being closely monitored at this time. The most recent chest x-ray which was done today which was personally reviewed by me showed persistent opacities in the right lung indicating significant pneumonia and also minimal changes in the left also. The patient underwent bronchoscopy yesterday by Dr. Hilario. Cultures are negative so far. Patient closely monitored. Patient also had approximately . White count is 27.3. Patient on broad-spectrum IV antibiotics. PAST MEDICAL HISTORY: Reviewed. REVIEW OF SYSTEMS: CARDIOVASCULAR SYSTEM: As mentioned earlier. RESPIRATORY SYSTEM: As mentioned earlier. GI: No nausea. : No dysuria. NERVOUS SYSTEM: No numbness or weakness. CURRENT MEDICATIONS: Current medications are reviewed and include: Tylenol, Xanax, Eliquis, Zithromax, cefepime, Cardizem, Pepcid, Motrin. Doses are reviewed. PHYSICAL EXAMINATION: The patient is alert and oriented x3. Pulse is 101, regular. Blood pressure 90/67, respiration 34, temperature 97.8, pulse ox 92% on room air. HEENT: Conjunctivae normal. NECK: No jugular venous distention. CARDIOVASCULAR: S1, S2 muffled. RESPIRATORY: Breath sounds diminished at the bases. A few scattered rhonchi. ABDOMEN: Soft, nontender. NERVOUS SYSTEM: No focal deficits. LABS: WBC 27.3, hemoglobin 13.9. Sodium 134. AST, ALT noted. ASSESSMENT: 1. Acute right lower lobe pneumonia, possibly bacterial pneumonia possibly gram- negative pneumonia with possible sepsis, present on admission. 2. Recent acute COVID-19 infection. 3. Atrial fibrillation paroxysmal with fast ventricular rate as well as sinus tachycardia, possibly secondary to COVID-19. 4. Hyponatremia. 5. Bilateral mild pleural effusions. 6. Increased WBC. 7. Elevated LFTs possibly secondary to COVID-19. 8. Elevated CRP. 9. Elevated procalcitonin. 10.Increased ferritin. 11.History of gastroesophageal reflux disease. 12.History of hiatal hernia. 13.FULL CODE. RECOMMENDATIONS AND DISCUSSION: Recommend to continue current medications, continue symptomatic treatment. Continue with antibiotics. Continue with bronchodilators. Continue with beta blockers. Closely follow. Await cultures especially from the bronchoscopy biopsy. Guarded prognosis. Further recommendations to follow. MMODL / IJN: [id number] / MTDD
[2020-03-12] MEDS: ALPRAZolam 0.5 MG TAB PO PRN ×2 (16:50→20:25)
--- NOTE | 2020-03-12 23:04 | PN ---
PROGRESS NOTE DATE OF SERVICE: 03/12/2020 REASON FOR FOLLOWUP: Pneumonia. INTERVAL HISTORY: Patient is currently afebrile. Patient is breathing more comfortably. The patient denies having any chest pain or shortness of breath or cough. No nausea. No vomiting. No abdominal pain or diarrhea. PHYSICAL EXAMINATION: Blood pressure is 102/60 with a pulse of 108. Temperature 98.8. He is 95% on room air. General description is a middle-aged male lying in bed in no distress. Respiratory system: Unlabored breathing, decreased breath sounds in the bases. No wheeze. Heart S1, S2. Regular rate and rhythm. ABDOMEN: Soft, no tenderness. LAB: Hemoglobin 13.1, white count 7.3, BUN of 18, creatinine 0.8. DIAGNOSTIC IMPRESSION AND PLAN: Patient admitted to the hospital with pneumonia in this patient status post bronchoscopy. Bronch cultures currently pending. Patient is covered with cefepime and Zithromax to continue while waiting for the culture to finalize. Continue supportive care. MMODL / IJN: [id number] /
[2020-03-13 04:17] LABS: Basophils # (A) 0.2 k/uL (0-0.2); Basophils % (A) 1 %; Eosinophils # (A) 0.7 k/uL (0-0.7); Eosinophils % (A) 2 %; HCT 42.8 % (39.0-53.0); HGB 13.8 gm/dL (13.0-17.5); Lymphocytes # (A) 1.6 k/uL (1.0-4.8); Lymphocytes % (A) 6 %; MCH 30.1 pg (25.0-35.0); MCHC 32.3 g/dL (31.0-37.0); MCV 93.4 fL (80.0-100.0); Monocytes # (A) 0.5 k/uL (0-1.0); Monocytes % (A) 2 %; Neutrophils # (A) 25.2 k/uL (1.3-7.7); Platelet Count 405 k/uL (150-450); RBC 4.58 m/uL (4.30-5.90); WBC 28.4 k/uL (3.8-10.6)
[2020-03-13 04:27] LABS: Neutrophils % (A) 89 %
[2020-03-13 04:29] LABS: ALT 91 U/L (4-49); AST 27 U/L (17-59); African American GFR (CKD) >90 (>60 ml/min/1.73 sqM); Albumin 2.5 g/dL (3.5-5.0); Alkaline Phosphatase 130 U/L (38-126); Anion Gap 2 mmol/L; Blood Urea Nitrogen 12 mg/dL (9-20); Calcium 8.2 mg/dL (8.4-10.2); Carbon Dioxide 30 mmol/L (22-30); Chloride 101 mmol/L (98-107); Glucose 97 mg/dL (74-99); Non-African American GFR(CKD) >90 (>60 ml/min/1.73 sqM); Potassium 3.7 mmol/L (3.5-5.1); Sodium 133 mmol/L (137-145); Total Bilirubin 1.2 mg/dL (0.2-1.3); Total Protein 5.3 g/dL (6.3-8.2)
[2020-03-13] MEDS: DILTIAZEM 125 MG in SODIUM CHLORIDE 0.9% 100 ML IV SCH ×2 (04:50→17:31)
[2020-03-13] MEDS: FAMOTIDINE 20 MG TAB PO SCH ×2 (08:04→20:20)
[2020-03-13] MEDS: APIXABAN 5 MG TAB PO SCH ×2 (08:04→20:20)
[2020-03-13] MEDS: METOPROLOL TARTRATE 50 MG TAB PO SCH ×2 (08:04→20:20)
[2020-03-13] MEDS: CEFEPIME 2 GM in SODIUM CHLORIDE 0.9% 100 ML IVPB SCH ×2 (08:04→20:20)
[2020-03-13] MEDS: AZITHROMYCIN 500 MG TAB PO SCH (08:05)
--- NOTE | 2020-03-13 10:29 | XR ---
EXAMINATION TYPE: XR chest 1V portable DATE OF EXAM: 03/13/2020 COMPARISON: 03/12/2020 INDICATION: Pneumonia TECHNIQUE: Single frontal view of the chest is obtained. FINDINGS: The heart size is normal. The pulmonary vasculature is normal. Right lower lobe infiltrate. Appears worsening. Mild left lower lobe infiltrate remains present IMPRESSION: 1. Worsening right lower lobe infiltrate. 2. Stable subsegmental left base infiltrate
--- NOTE | 2020-03-13 13:03 | P.PN ---
Subjective Progress Note Date: 03/13/20 Principal diagnosis: Acute community-acquired pneumonia This a very pleasant 29-year-old gentleman who was admitted on 03/07/2020 with complaints of increasing shortness of breath, cough and congestion. He had been having symptoms for 4-5 days prior to his admission. [facility] and was treated with azithromycin, ibuprofen, prednisone without much improvement. He was subsequently admitted with a right midlung community- acquired pneumonia. He is on ceftriaxone and azithromycin along with bronchodilators. He is seen today in follow-up on the regular medical floor. He is resting comfortably in bed. He is having some fever and chills still. Still with a loose productive cough. Temperature 102.4 last evening. Currently afebrile. White count 15.9. Hemoglobin 15.1. ESR 69. Legionella antigen was negative. Influenza negative. Coronavirus not detected. The patient is seen today 03/09/2020 in follow-up on the regular medical floor. He is currently resting comfortably in bed. Awake and alert in no acute distress. He has been having issues with atrial fibrillation with a rapid ventricular response. He's been initiated on oral Cardizem and anticoagulated with Eliquis. Lovenox was discontinued. Echocardiogram is pending. He is maintaining good O2 saturations in the mid 90s on 2 L/m per nasal cannula. Currently afebrile. Blood culture reveals no growth. White count 22.0. Hemoglobin 15.1. Sodium 141. Potassium 4.5. Creatinine 0.7. C-reactive protein 38.0. Today's chest x-ray reveals worsening right basilar acute i nfiltrate/atelectasis. Mild central vascular congestion. He remains on ceftriaxone and azithromycin. Continue bronchodilators. The patient is seen today 03/10/2020 in follow-up in the intensive care unit. He did develop another episode of atrial fibrillation with a rapid ventricular response. He was subsequently transferred here to the intensive care unit. He is on Cardizem drip at 15 mg per hour. 0.9 normal saline at KVO. He is maintaining O2 saturation in the 90s on 5 L/m per nasal cannula. Presently he is feeling quite well. He states his breathing is better today compared to yes terday. Chest x-ray continues to show significant right lower lobe consolidation/infiltrate. Ultrasound of the right chest revealed minimum fluid at 1.6 cm. Smaller left-sided pleural effusion measuring 1.5 cm. Blood cultures revealing no growth to date. White count 24.6. Hemoglobin 14.0. Lym phocytes 0.7. Sodium 139. Potassium 4.0. Creatinine 0.64. Glucose 124. C- reactive protein 308. BNP 2830. TSH 1.25. Echocardiogram recurrent results pending. He remains on DuoNeb inhalations, ceftriaxone and azithromycin, dexamethasone and vitamin supplements. He is anticoagulated with Eliquis. Reevaluated today on 03/12/2020 patient remains in the ICU. He is on room air at present, O2 saturations 98%, patient is being treated for pneumonia, community- acquired, underwent a bronchoscopy on 03/11/2020, and it was basically nondiagnostic so far. Chest x-ray is showing some improvement and better aeration to the right lower lobe. Patient remains on antibiotics and today I recommended urine for Legionella antigen. His last cold with test was positive on 02/05 however the patient tested negative this admission. Patient is complaining of cough, the cough is productive with whitish phlegm, continues to have a low-grade fever of 100.1. IV fluid is at KVO. Again the patient is hemodynamically stable. Continues to have leukocytosis with WBC count 27.3 hemoglobin is 13.9. Electrolytes are normal renal profile is normal Reevaluated today on 03/13/2020, patient is basically about the same compared to yesterday. Remains in the ICU, he is on room air with O2 saturation of 92%. IV fluid at KVO, he is hemodynamically stable. Remains on Zithromax and cefepime. Cultures so far are all nondiagnostic, Legionella urine antigen is negative. Patient continues to have intermittent episodes of cough, no chest pain no fever no chills no hemoptysis. Continues to have leukocytosis with WBC count of 28.4. Hemoglobin is normal electrolytes are normal renal profile is normal Objective - Vital Signs Vital signs: Vital Signs Temp 98 F 03/13/20 08:00 Pulse 79 03/13/20 11:00 Resp 24 03/13/20 11:00 BP 96/63 03/13/20 11:00 Pulse Ox 93 L 03/13/20 11:00 Intake & Output 03/12/20 03/13/20 03/13/20 18:59 06:59 18:59 Intake Total 620 640 40 Output Total 1000 850 2 Balance -380 -210 38 Intake: IV 220 340 40 0.9ns 220 240 40 Cefepime 2 gm In Sodium 100 Chloride 0.9% 100 ml @ 25 mls/hr IVPB Q12HR [facility] Rx #:[id number] Oral 400 300 Output: Urine 1000 850 0 Stool 2 Other: Voiding Method Bedside Commode Bedside Commode Urinal Urinal # Voids 1 0 0 # Bowel Movements 2 - Exam Physical Exam: Revealed 29-year-old white male pleasant in no distress on room air. Head: Atraumatic, normocephalic. HEENT:[Neck is supple.] [No neck masses.] [No thyromegaly.] [No JVD.] Chest: [Diminished breath sounds and dullness at the right base. Fine crackles heard. Cardiac Exam: [Normal S1 and S2, no S3 gallop, no murmur.] Abdomen: [Soft, nontender, no megaly, no rebound, no guarding, normal bowel sounds.] Extremities: [No clubbing, no edema, no cyanosis.] Neurological Exam: [No focal neurologic deficit.] Alert and oriented 3. Psychiatric: Normal mood, affect and normal mental status examination. Skin: No rashes. - Labs CBC & Chem 7: 03/13/20 03:35 03/13/20 03:35 Labs: Abnormal Lab Results - Last 24 Hours (Table) 03/09/20 03/13/20 03/13/20 Range/Units 12:20 03:35 03:35 WBC 28.4 H (3.8-10.6) k/uL Neutrophils # 25.2 H (1.3-7.7) k/uL Sodium 133 L (137-145) mmol/L Calcium 8.2 L (8.4-10.2) mg/dL ALT 91 H (4-49) U/L Alkaline Phosphatase 130 H (38-126) U/L Total Protein 5.3 L (6.3-8.2) g/dL Albumin 2.5 L (3.5-5.0) g/dL Interleukin 6 178.9 H (<6.4) pg/mL Microbiology - Last 24 Hours (Table) 03/07/20 09:45 Blood Culture - Final Blood No Growth after 144 hours 03/11/20 13:00 Gram Stain - Final Bronchoalviolar Lavage - Right Bronchial Washings Culture - Final 03/11/20 10:10 Gram Stain - Final Sputum Sputum Culture - Final 03/11/20 13:00 Acid Fast Bacilli Smear - Final Bronchoalviolar Lavage - Right Acid Fast Bacilli Culture - Preliminary Assessment and Plan Assessment: Impression: Acute community-acquired pneumonia involving the right lobe and right lower lobe. Acute leukocytosis secondary to pneumonia. Acute febrile illness secondary to above. History of covid 19 infection 1 month ago. Recommendation: Continue antibiotics, bronchodilators, Continue incentive spirometry. So far the cultures from the bronchoscopy are nondiagnostic. Ultrasound of the chest showed no significant fluid to drain. Titrate oxygenation down accordingly maintain O2 saturation above 90%. Transfer patient out of the ICU to a regular medical floor today. We'll continue to follow. Time with Patient: Less than 30
--- NOTE | 2020-03-13 14:59 | PN ---
PROGRESS NOTE DATE OF SERVICE: 03/13/2020 This 29-year-old gentleman who was admitted with right lower pneumonia also had features of sepsis. The patient also had recent COVID-19 pneumonia. The patient also had a bronchoscopy by pulmonology. The final cultures are pending at this time. Repeat chest x-ray which was done today which I reviewed personally shows significant pneumonic process on the right side and white count is still elevated 28.4, and a liver functions also elevated even though showing a diminishing trend. Urine Legionella is negative. The cultures are negative as mentioned. PAST MEDICAL HISTORY: Reviewed. REVIEW OF SYSTEMS: CARDIOVASCULAR SYSTEM: No angina or palpitations. RESPIRATORY SYSTEM: As mentioned earlier. GI: As mentioned earlier. : As mentioned earlier. NERVOUS SYSTEM: No numbness or weakness. CURRENT MEDICATIONS: Tylenol, Xanax, Eliquis Zithromax, cefepime, diltiazem, Pepcid. Motrin. Doses are reviewed. PHYSICAL EXAMINATION: The patient is alert and oriented x3. Pulse 79, blood pressure 96/63, respirations 24, temperature 98 degrees, pulse ox 93% on room air. HEENT: Conjunctivae normal. NECK: No jugular venous distention. CARDIOVASCULAR: S1, S2 muffled. RESPIRATORY: Breath sounds diminished at the bases. No rhonchi, no crackles. ABDOMEN: Soft, nontender. LEGS: No edema, no swelling. NERVOUS SYSTEM: No focal deficits. LABS: WBC 28.4. Sodium is 133. ASSESSMENT: 1. Acute right lower lobe pneumonia possibly bacterial pneumonia possibly gram- negative pneumonia with possible sepsis, present on admission. 2. Recent acute COVID-19 infection. 3. Atrial fibrillation paroxysmal with fast ventricular rate as well as sinus tachycardia secondary to COVID-19. 4. Hyponatremia. 5. Bilateral mild pleural effusion. 6. Increased WBC. 7. Elevated LFTs possibly secondary to COVID-19. 8. Elevated CRP. 9. Elevated procalcitonin. 10.Increased ferritin. 11.History of gastroesophageal reflux disease. 12.History of hiatal hernia. 13.FULL CODE. RECOMMENDATIONS AND DISCUSSION: Recommend to continue current medications. Continues symptomatic treatment. Continue the broad-spectrum IV antibiotics. Continue the bronchodilators. Continue the rest of medications. I would also recommend a CT scan of the chest to ensure stability. Patient is on Eliquis. Closely follow with Cardiology, Pulmonology. Guarded prognosis. Further recommendations to follow. MMODL / IJN: [id number] /
--- NOTE | 2020-03-13 22:45 | PN ---
PROGRESS NOTE DATE OF SERVICE: 03/13/2020 REASON FOR FOLLOWUP: Pneumonia. INTERVAL HISTORY: The patient is currently afebrile. The patient is currently breathing comfortably on room air. The patient denies having any chest pain. He did have a cough, moderate in intensity, and was bringing up some sputum. No nausea, no vomiting, no abdominal pain or diarrhea. PHYSICAL EXAMINATION: Blood pressure 101/59, pulse 83, temperature 98. He is 92% on room air. General description is a middle-aged male lying in bed in no distress. RESPIRATORY SYSTEM: Unlabored breathing with decreased intensity of breath sounds. No wheeze. HEART: S1, S2. Regular rate and rhythm. ABDOMEN: Soft. No tenderness. LABS: Urine for Legionella antigen is negative. Hemoglobin is 13, white count of 28.4. Bronch culture has been negative so far. DIAGNOSTIC IMPRESSION AND PLAN: Patient with pneumonia in this patient now with evidence of persistent elevated white count. Culture has been negative for any resistant pathogen. Patient is covered with cefepime. We will add Flagyl. To rule out possibility of aspiration type of pneumonia, may need a CT of the chest to make sure no evidence of any loculated fluid that may need to be drained. Continue supportive care. MMODL / IJN: [id number] /
[2020-03-13] MEDS: metroNIDAZOLE 500 MG TAB PO SCH (22:54)
[2020-03-14 03:58] LABS: ALT 105 U/L (4-49); AST 56 U/L (17-59); African American GFR (CKD) >90 (>60 ml/min/1.73 sqM); Albumin 2.3 g/dL (3.5-5.0); Alkaline Phosphatase 101 U/L (38-126); Anion Gap 3 mmol/L; Blood Urea Nitrogen 13 mg/dL (9-20); Calcium 8.2 mg/dL (8.4-10.2); Carbon Dioxide 29 mmol/L (22-30); Chloride 104 mmol/L (98-107); Glucose 92 mg/dL (74-99); Non-African American GFR(CKD) >90 (>60 ml/min/1.73 sqM); Potassium 4.2 mmol/L (3.5-5.1); Sodium 136 mmol/L (137-145); Total Bilirubin 0.6 mg/dL (0.2-1.3); Total Protein 5.2 g/dL (6.3-8.2)
[2020-03-14 04:26] LABS: HCT 42.7 % (39.0-53.0); HGB 13.3 gm/dL (13.0-17.5); MCH 29.2 pg (25.0-35.0); MCHC 31.2 g/dL (31.0-37.0); MCV 93.5 fL (80.0-100.0); Platelet Count 388 k/uL (150-450); RBC 4.56 m/uL (4.30-5.90); RDW 13.1 % (11.5-15.5)
[2020-03-14 05:19] LABS: Band Neutrophils % 7 %; Eosinophils # (M) 0.38 k/uL (0-0.7); Lymphocytes # (M) 2.66 k/uL (1.0-4.8); Metamyelocytes # (M) 0.95 k/uL (0); Metamyelocytes % 5 %; Monocytes # (M) 0.76 k/uL (0-1.0); Neutrophils % (M) 69 %; Nucleated Red Blood Cells 0 /100 WBC (0-0); Total Cells Counted 200
[2020-03-14 05:23] LABS: Anisocytosis (M) Present; Polychromasia Present
[2020-03-14 05:24] LABS: Large Platelets Present
[2020-03-14] MEDS: CEFEPIME 2 GM in SODIUM CHLORIDE 0.9% 100 ML IVPB SCH ×2 (09:18→19:46)
[2020-03-14] MEDS: METOPROLOL TARTRATE 50 MG TAB PO SCH ×2 (09:18→19:46)
[2020-03-14] MEDS: FAMOTIDINE 20 MG TAB PO SCH ×2 (09:19→19:46)
[2020-03-14] MEDS: APIXABAN 5 MG TAB PO SCH ×2 (09:19→19:46)
[2020-03-14] MEDS: metroNIDAZOLE 500 MG TAB PO SCH ×3 (09:19→19:46)
--- NOTE | 2020-03-14 11:06 | XR ---
EXAMINATION TYPE: XR chest 1V portable DATE OF EXAM: 03/14/2020 CLINICAL HISTORY: Difficulty breathing and pneumonia progress study. TECHNIQUE: Single AP portable upright view of the chest is obtained. COMPARISON: Chest x-ray from one day earlier and older studies FINDINGS: Continued improved aeration right lung base. Stable patchy left basilar opacity. Upper tanya gs remain clear. Cardiac silhouette size is stable and mildly enlarged. Low lung volumes remain prese nt. Osseous structures are intact. IMPRESSION: Low lung volumes and mild cardiomegaly redemonstrated. Stable patchy left basilar atelect asis and/or infiltrate. Persistent but improving right basilar acute infiltrate and/or atelectasis no jesse.
--- NOTE | 2020-03-14 14:05 | P.PN ---
Subjective Progress Note Date: 03/14/20 Principal diagnosis: Acute community-acquired pneumonia This a very pleasant 29-year-old gentleman who was admitted on 03/07/2020 with complaints of increasing shortness of breath, cough and congestion. He had been having symptoms for 4-5 days prior to his admission. [facility] and was treated with azithromycin, ibuprofen, prednisone without much improvement. He was subsequently admitted with a right midlung community- acquired pneumonia. He is on ceftriaxone and azithromycin along with bronchodilators. He is seen today in follow-up on the regular medical floor. He is resting comfortably in bed. He is having some fever and chills still. Still with a loose productive cough. Temperature 102.4 last evening. Currently afebrile. White count 15.9. Hemoglobin 15.1. ESR 69. Legionella antigen was negative. Influenza negative. Coronavirus not detected. The patient is seen today 03/09/2020 in follow-up on the regular medical floor. He is currently resting comfortably in bed. Awake and alert in no acute distress. He has been having issues with atrial fibrillation with a rapid ventricular response. He's been initiated on oral Cardizem and anticoagulated with Eliquis. Lovenox was discontinued. Echocardiogram is pending. He is maintaining good O2 saturations in the mid 90s on 2 L/m per nasal cannula. Currently afebrile. Blood culture reveals no growth. White count 22.0. Hemoglobin 15.1. Sodium 141. Potassium 4.5. Creatinine 0.7. C-reactive protein 38.0. Today's chest x-ray reveals worsening right basilar acute i nfiltrate/atelectasis. Mild central vascular congestion. He remains on ceftriaxone and azithromycin. Continue bronchodilators. The patient is seen today 03/10/2020 in follow-up in the intensive care unit. He did develop another episode of atrial fibrillation with a rapid ventricular response. He was subsequently transferred here to the intensive care unit. He is on Cardizem drip at 15 mg per hour. 0.9 normal saline at KVO. He is maintaining O2 saturation in the 90s on 5 L/m per nasal cannula. Presently he is feeling quite well. He states his breathing is better today compared to yes terday. Chest x-ray continues to show significant right lower lobe consolidation/infiltrate. Ultrasound of the right chest revealed minimum fluid at 1.6 cm. Smaller left-sided pleural effusion measuring 1.5 cm. Blood cultures revealing no growth to date. White count 24.6. Hemoglobin 14.0. Lym phocytes 0.7. Sodium 139. Potassium 4.0. Creatinine 0.64. Glucose 124. C- reactive protein 308. BNP 2830. TSH 1.25. Echocardiogram recurrent results pending. He remains on DuoNeb inhalations, ceftriaxone and azithromycin, dexamethasone and vitamin supplements. He is anticoagulated with Eliquis. Reevaluated today on 03/12/2020 patient remains in the ICU. He is on room air at present, O2 saturations 98%, patient is being treated for pneumonia, community- acquired, underwent a bronchoscopy on 03/11/2020, and it was basically nondiagnostic so far. Chest x-ray is showing some improvement and better aeration to the right lower lobe. Patient remains on antibiotics and today I recommended urine for Legionella antigen. His last cold with test was positive on 02/05 however the patient tested negative this admission. Patient is complaining of cough, the cough is productive with whitish phlegm, continues to have a low-grade fever of 100.1. IV fluid is at KVO. Again the patient is hemodynamically stable. Continues to have leukocytosis with WBC count 27.3 hemoglobin is 13.9. Electrolytes are normal renal profile is normal Reevaluated today on 03/13/2020, patient is basically about the same compared to yesterday. Remains in the ICU, he is on room air with O2 saturation of 92%. IV fluid at KVO, he is hemodynamically stable. Remains on Zithromax and cefepime. Cultures so far are all nondiagnostic, Legionella urine antigen is negative. Patient continues to have intermittent episodes of cough, no chest pain no fever no chills no hemoptysis. Continues to have leukocytosis with WBC count of 28.4. Hemoglobin is normal electrolytes are normal renal profile is normal Patient was reevaluated today on 03/14/2020, patient is doing well, asking to be discharged home if possible. Chest x-ray showed improvement in his right lower lobe consolidation. Clinically the patient is feeling better, remains on room air, afebrile, and his white cell count came down significantly, is 19.0 today compared to 28.4 yesterday. Objective - Vital Signs Vital signs: Vital Signs Temp 98.0 F 03/14/20 10:46 Pulse 82 03/14/20 10:46 Resp 16 03/14/20 10:46 BP 115/72 03/14/20 10:46 Pulse Ox 96 03/14/20 10:46 Intake & Output 03/13/20 03/14/20 03/14/20 18:59 06:59 18:59 Intake Total 40 800 Output Total 2 1300 Balance 38 -500 Intake: IV 40 500 0.9ns 40 400 Cefepime 2 gm In Sodium 100 Chloride 0.9% 100 ml @ 25 mls/hr IVPB Q12HR [facility] Rx #:[id number] Oral 300 Output: Urine 0 1300 Stool 2 Other: Voiding Method Bedside Commode Bedside Commode Urinal Urinal # Voids 0 1 - Exam Physical Exam: Revealed 29-year-old white male pleasant in no distress on room air. Head: Atraumatic, normocephalic. HEENT:[Neck is supple.] [No neck masses.] [No thyromegaly.] [No JVD.] Chest: [Diminished breath sounds and dullness at the right base. No crackles, no rhonchi and no wheezes. Cardiac Exam: [Normal S1 and S2, no S3 gallop, no murmur.] Abdomen: [Soft, nontender, no megaly, no rebound, no guarding, normal bowel sounds.] Extremities: [No clubbing, no edema, no cyanosis.] Neurological Exam: [No focal neurologic deficit.] Alert and oriented 3. Psychiatric: Normal mood, affect and normal mental status examination. Skin: No rashes. - Labs CBC & Chem 7: 03/14/20 03:04 03/14/20 03:04 Labs: Abnormal Lab Results - Last 24 Hours (Table) 03/13/20 03/14/20 03/14/20 Range/Units 14:42 03:04 03:04 WBC 19.0 H (3.8-10.6) k/uL Neutrophils # (Manual) 14.40 H (1.3-7.7) k/uL Metamyelocytes # (Man) 0.95 H (0) k/uL D-Dimer 1.91 H (<0.60) mg/L FEU Sodium 136 L (137-145) mmol/L Calcium 8.2 L (8.4-10.2) mg/dL ALT 105 H (4-49) U/L Total Protein 5.2 L (6.3-8.2) g/dL Albumin 2.3 L (3.5-5.0) g/dL Microbiology - Last 24 Hours (Table) 03/07/20 09:45 Blood Culture - Final Blood No Growth after 144 hours 03/11/20 13:00 Gram Stain - Final Bronchoalviolar Lavage - Right Bronchial Washings Culture - Final 03/11/20 10:10 Gram Stain - Final Sputum Sputum Culture - Final Assessment and Plan Assessment: Impression: Acute community-acquired pneumonia involving the right lobe and right lower lobe. Acute leukocytosis secondary to pneumonia. Acute febrile illness secondary to above. History of covid 19 infection 1 month ago. Recommendation: Switch patient to oral Levaquin and discharged home on Levaquin 750 mg daily for 5 days. Continue incentive spirometry. Cleared for discharge today, follow up with Dr. Hilario in one week. Time with Patient: Less than 30
--- NOTE | 2020-03-14 17:58 | PN ---
PROGRESS NOTE DATE OF SERVICE: 03/14/2020 This 29-year-old gentleman who was admitted with acute right lower lobe pneumonia in the setting of COVID-19 also had atrial fibrillation possible cardiac manifestation of COVID also. Patient is on broad-spectrum IV antibiotics at this time. The cultures are negative. White count is slightly improved to 19. The D-dimer is still elevated up to 1.91. Urine Legionella is negative at this time. The most recent chest x-ray, which was evaluated personally by me, showed some improvement. The patient is being closely monitored. Past medical history reviewed. REVIEW OF SYSTEMS: CARDIOVASCULAR SYSTEM: No angina, palpitations. RESPIRATORY SYSTEM: As mentioned earlier. GI: As mentioned earlier. : No dysuria or retention. NERVOUS SYSTEM: No numbness, weakness. CURRENT MEDICATIONS: Reviewed. They include Tylenol, Xanax, Eliquis, cefepime, Pepcid. Motrin, Lopressor. Doses are reviewed. PHYSICAL EXAMINATION: Patient alert oriented x3. Pulse 62, blood pressure 108/69, respirations 16, temperature 97.7, pulse ox 94% on room air. HEENT: Conjunctivae normal. NECK: No jugular venous distention. CARDIOVASCULAR SYSTEM: S1, S2 muffled. RESPIRATORY SYSTEM: Breath sounds diminished at the bases. A few scattered rhonchi and crackles. ABDOMEN: Soft, non-tender. LEGS: No edema. No swelling. NERVOUS SYSTEM: No focal deficit. LABS: WBC 19. Sodium is 136. ASSESSMENT: 1. Acute right lower lobe pneumonia, possibly bacterial pneumonia, possibly Gram- negative pneumonia with possible sepsis, present on admission. 2. Recent acute COVID-19 infection. 3. Atrial fibrillation, paroxysmal, with a fast ventricular rate as well as sinus tachycardia secondary to COVID-19 possibly. 4. Hyponatremia. 5. On Eliquis. 6. Bilateral mild pleural effusion. 7. Increased white count. 8. Elevated liver function tests, possibly secondary to COVID-19. 9. Elevated CRP. 10.Elevated procalcitonin. 11.Increased ferritin. 12.History of gastroesophageal reflux disease. 13.History of hiatal hernia. 14.FULL CODE. RECOMMENDATIONS AND DISCUSSION: I recommend to continue current medications, continue with the monitoring, symptomatic treatment. I recommend continuing the broad-spectrum IV antibiotics. Continue the rest of the medications. The bronchoscopic cultures are negative so far. Guarded prognosis. Further recommendations to follow. MMODL / IJN: [id number] / JAYLAN
[2020-03-15 03:05] VITALS: PULSE 61
--- NOTE | 2020-03-15 04:10 | PN ---
PROGRESS NOTE DATE OF SERVICE: 03/14/2020 REASON FOR FOLLOWUP: Pneumonia. INTERVAL HISTORY: The patient is currently afebrile. Patient is breathing comfortably. Denies having any chest pain, shortness of breath, minimal cough. No nausea. No abdominal pain. No diarrhea. PHYSICAL EXAMINATION: Blood pressure 114/74 with a pulse of 73, temperature 97.7. He is 94% on room air. General description is a young male lying in bed in no distress. Respiratory system: Unlabored breathing, decreased breath sounds in the bases. No wheeze. Heart S1, S2. Regular rate and rhythm. Abdomen soft, no tenderness. LABS: Hemoglobin 13.3, white count 19,000, BUN of 13, creatinine 0.70. Bronch culture has been negative. DIAGNOSTIC IMPRESSION AND PLAN: Patient admitted to the hospital with pneumonia left lobe as well as right lower lobe in this patient who is status post bronchoscopy. Culture has been negative. Patient is currently covered on cefepime. Finish therapy with oral Ceftin and close outpatient followup. MMODL / IJN: [id number] /
[2020-03-15 07:03] LABS: HCT 44.7 % (39.0-53.0); HGB 14.1 gm/dL (13.0-17.5); MCH 29.6 pg (25.0-35.0); MCHC 31.4 g/dL (31.0-37.0); MCV 94.2 fL (80.0-100.0); Mean Platelet Volume 7.7; Platelet Count 448 k/uL (150-450); RBC 4.74 m/uL (4.30-5.90); RDW 13.3 % (11.5-15.5); WBC 10.8 k/uL (3.8-10.6)
[2020-03-15 07:11] LABS: African American GFR (CKD) >90 (>60 ml/min/1.73 sqM); Anion Gap 3 mmol/L; Blood Urea Nitrogen 15 mg/dL (9-20); Calcium 8.8 mg/dL (8.4-10.2); Carbon Dioxide 32 mmol/L (22-30); Chloride 102 mmol/L (98-107); Glucose 92 mg/dL (74-99); Non-African American GFR(CKD) >90 (>60 ml/min/1.73 sqM); Potassium 4.8 mmol/L (3.5-5.1); Sodium 137 mmol/L (137-145)
--- NOTE | 2020-03-15 07:11 | XR ---
EXAMINATION TYPE: XR chest 1V portable DATE OF EXAM: 03/15/2020 COMPARISON: 03/14/2020 INDICATION: Covid, shortness of breath TECHNIQUE: Single frontal view of the chest is obtained. FINDINGS: The heart size is enlarged. The pulmonary vasculature is normal. Right lower lobe infiltrate is present. IMPRESSION: 1. Right lower lobe infiltrate remains present. 2. Cardiomegaly.
[2020-03-15 07:23] LABS: Band Neutrophils % 15 %; Eosinophils # (M) 0.11 k/uL (0-0.7); Metamyelocytes # (M) 0.54 k/uL (0); Metamyelocytes % 5 %; Monocytes # (M) 0.32 k/uL (0-1.0); Myelocytes # (M) 0.22 k/uL (0); Myelocytes % 2 %; Neutrophils % (M) 50 %; Nucleated Red Blood Cells 0 /100 WBC (0-0); Total Cells Counted 200
[2020-03-15] MEDS: CEFEPIME 2 GM in SODIUM CHLORIDE 0.9% 100 ML IVPB SCH (09:39)
[2020-03-15] MEDS: APIXABAN 5 MG TAB PO SCH (09:39)
[2020-03-15] MEDS: METOPROLOL TARTRATE 50 MG TAB PO SCH (09:39)
[2020-03-15] MEDS: FAMOTIDINE 20 MG TAB PO SCH (09:39)
[2020-03-15] MEDS: metroNIDAZOLE 500 MG TAB PO SCH (09:39)
[2020-03-15 10:21] VITALS: BP 104/67; RESP 18; TEMP 97.7
--- NOTE | 2020-03-15 14:59 | PN ---
PROGRESS NOTE DATE OF SERVICE: 03/15/2020 REASON FOR FOLLOWUP: Pneumonia. INTERVAL HISTORY: The patient was seen on rounds this morning. The patient overall has been feeling better, breathing comfortably. The patient denies having any chest pain or shortness of breath. Occasional cough. No abdominal pain or diarrhea. PHYSICAL EXAMINATION: Blood pressure is 104/67 with pulse of 61, temperature 97.7. He is 98% room air. General description is a young male up in the room in no distress. RESPIRATORY SYSTEM: Unlabored breathing, decreased intensity of breath sounds. No wheeze. HEART: S1, S2. Regular rate and rhythm. ABDOMEN: Soft, no tenderness. LABS: Hemoglobin is 14.1, white count 10.8, creatinine 0.69. DIAGNOSTIC IMPRESSION AND PLAN: Patient admitted to the hospital with pneumonia so far sputum is negative for resistant pathogen. The patient right lower lobe pneumonia no worsening. He will finish therapy with oral Ceftin 500 mg twice a day for another 7 days. This was discussed with the nurse on discharge and close outpatient followup. MMODL / IJN: [id number] / MTDKenya
--- NOTE | 2020-03-16 09:21 | P.DS ---
Providers Date of admission: 03/07/20 12:36 Expected date of discharge: 03/15/20 Attending physician: Tahd Zuniga Consults: 03/07/20 11:45 Consult Physician Routine Consulting Provider: Ronnie Hilario Consult Reason/Comments: post covid lobar pneumonia Do you want consulting provider notified?: Yes 03/07/20 19:14 Consult Physician Routine Consulting Provider: Ezequiel Valente Consult Reason/Comments: pneumonia covid Do you want consulting provider notified?: Yes Primary care physician: Noe Zepeda [facility] Course: Final Diagnosis Acute right lower lobe pneumonia, possibly bacterial pneumonia, possibly gram- negative pneumonia with possible sepsis, present on admission Recent acute Covid 19 infection Atrial fibrillation paroxysmal, with a fast ventricular rate as well as sinus tachycardia secondary to Covid 19 possibly Hyponatremia On Eliquis Bilateral mild pleural effusion Increased white count Elevated liver function tests, possibly secondary to Covid 19 Elevated CRP Elevated pro calcitonin Increased ferritin History of hiatal hernia History of gastroesophageal reflux disease Full code Discharge disposition Patient is being discharged in a stable condition with guarded prognosis to home. Patient will follow-up with Dr. Duane gross in the outpatient setting upon discharge. Patient also instructed to follow-up with cardiology and pulmonary as discussed and scheduled. Patient is to continue with short course of oral antibiotics in the form of Ceftin 500 mg twice daily for the next 5 days to complete the course. Total time taken is greater than 35 minutes. Hospital course This is a 29-year-old male who was recently admitted with acute right lower lobe pneumonia in the setting of Covid 19 also had atrial fibrillation possible cardiac manifestation of Covid and was being closely monitored. Patient was seen and evaluated by cardiology along with infectious disease and pulmonary. Patient will follow-up with cardiology Dr. Pavon and Dr. Yanelis kamara in the outpatient setting as discussed and scheduled. Patient will also continue with Ceftin 500 mg twice daily for the next 5 days to complete the course. Patient is feeling much better and would like to go home today. Currently no reports of chest pain, shortness of breath, or palpitations. Patient is afebrile. No reports of nausea or vomiting and patient is tolerating diet. Patient will be discharged home today. On exam vital signs are stable. Cardio S1, S2 are muffled. Respiratory system shows diminished breath sounds at the bases with no wheezing or rhonchi noted. Abdomen is soft and nontender. Nervous system shows no focal deficits. Please refer to medication reconciliation sheet for a list of medications. Patient Condition at Discharge: Stable Plan - Discharge Summary Discharge Rx Participant: No New Discharge Prescriptions: New Cefuroxime Axetil [Ceftin] 500 mg PO BID 5 Days #10 tab Apixaban [Eliquis] 5 mg PO BID 30 Days #60 tab Metoprolol Tartrate [Lopressor] 100 mg PO BID 30 Days #60 tab Famotidine [Pepcid] 20 mg PO BID 30 Days #60 tab Acetaminophen Tab [Tylenol] 650 mg PO Q6HR PRN tab PRN Reason: Fever And/ Or Pain Continue Ibuprofen [Motrin Ib] 400 mg PO Q6H PRN PRN Reason: Fever Albuterol Inhaler [Ventolin Hfa Inhaler] 2 puff INHALATION RT-Q4H PRN PRN Reason: Shortness Of Breath Discontinued predniSONE [Deltasone] 40 mg PO DAILY Azithromycin [Zithromax Z-pack (6 tabs)] See Taper PO DAILY Discharge Medication List Albuterol Inhaler [Ventolin Hfa Inhaler] 2 puff INHALATION RT-Q4H PRN 03/07/20 [History] Ibuprofen [Motrin Ib] 400 mg PO Q6H PRN 03/07/20 [History] Acetaminophen Tab [Tylenol] 650 mg PO Q6HR PRN tab 03/15/20 [Rx] Apixaban [Eliquis] 5 mg PO BID 30 Days #60 tab 03/15/20 [Rx] Cefuroxime Axetil [Ceftin] 500 mg PO BID 5 Days #10 tab 03/15/20 [Rx] Famotidine [Pepcid] 20 mg PO BID 30 Days #60 tab 03/15/20 [Rx] Metoprolol Tartrate [Lopressor] 100 mg PO BID 30 Days #60 tab 03/15/20 [Rx] Follow up Appointment(s)/Referral(s): Jovan Pavon MD [STAFF PHYSICIAN] - 2 Weeks (Office will be calling you with your appointment date and time.) Ronnie Hilario DO [Doctor of Osteopathic Medicine] - 03/28/20 8:30 am Noe Zepeda DO [Primary Care Provider] - 03/19/20 10:20 am Patient Instructions/Handouts: Diltiazem (By mouth), Apixaban (By mouth) Activity/Diet/Wound Care/Special Instructions: Activity limited until follow-up Follow-up with primary care provider upon discharge Continue with antibiotics for 5 days until finished Follow-up with infectious disease in the outpatient setting Continue current diet Discharge Disposition: HOME SELF-CARE
== END 2020-03-15 13:03 | disposition home or self-care (01) | DRG 871 ==
LOC: EC 09:18 → 6NMEDSUR 12:36 → 2SICU 03-09 13:45 → 4SSUR 03-14 06:18
PROVIDERS: ADMIT Hospitalist; ATTEND Hospitalist
PROC: 0B9D8ZX Drainage of Right Middle Lung Lobe, Via Natural or Artificial Opening Endoscopic, Diagnostic (ICD-10-PCS; principal; 2020-03-11 09:00)
DX: A41.59 Other Gram-negative sepsis (principal); J15.6 Pneumonia due to other Gram-negative bacteria; E87.1 Hypo-osmolality and hyponatremia; J90 Pleural effusion, not elsewhere classified; J98.11 Atelectasis; I48.0 Paroxysmal atrial fibrillation; R00.0 Tachycardia, unspecified; K21.9 Gastro-esophageal reflux disease without esophagitis; Z79.01 Long term (current) use of anticoagulants; Z87.01 Personal history of pneumonia (recurrent); Z79.899 Other long term (current) drug therapy; Z88.0 Allergy status to penicillin; Z20.822 Contact with and (suspected) exposure to COVID-19
CPT/HCPCS: 31624; 36415; 71045; 71046; 71275; 76604; 80048; 80053; 81001; 82728; 83520; 83605; 83615; 83735; 83880; 84145; 84443; 84484; 85025; 85379; 85610; 85652; 85730; 86140; 86738; 86769; 87040; 87070; 87102; 87116; 87205; 87206; 87252; 87449; 87496; 87498; 87502; 87529; 87634; 87636; 87798; 88108; 88305; 89050; 93005; 93306; 94640; 94760; 96365; 96368; 99285

== ENCOUNTER → 2020-04-19 | Outpatient (CLI) | payer BC, MEDICAID ==
--- NOTE | 2020-04-19 08:53 | XR ---
EXAMINATION TYPE: XR chest 2V DATE OF EXAM: 04/19/2020 COMPARISON: 03/15/2020 INDICATION: Covid short of breath TECHNIQUE: Frontal and lateral views of the chest are obtained. FINDINGS: The heart size is normal. The pulmonary vasculature is normal. The lungs are clear. IMPRESSION: 1. No acute pulmonary process.
== END | disposition home or self-care (01) ==
LOC: RADXRYALE 08:33
PROVIDERS: ATTEND Physician Assistant Medical
DX: R06.02 Shortness of breath (principal); Z86.16 Personal history of COVID-19
CPT/HCPCS: 71046

== ENCOUNTER → 2020-12-13 | Outpatient (CLI) | payer MEDICAID ==
--- NOTE | 2020-12-13 17:16 | XR ---
EXAMINATION TYPE: XR shoulder complete RT DATE OF EXAM: 12/13/2020 Comparison: None Clinical History: 30-year-old male [id number] RT SHLD PAIN Findings: Subacromial space is preserved. No tendinous or bursal calcifications. Small delineation to be greate r tuberosity. No acute fracture, subluxation, dislocation is seen. Some metallic density projects at the right base of the neck and should be correlated clinically. Impression: No acute osseous abnormality seen. Note a metallic density at the right base of the neck on the Grash ey view. Please review the image to determine if this represents a retained foreign body or external artifact.
== END | disposition home or self-care (01) ==
LOC: RADXRYALE 14:29
PROVIDERS: ATTEND Physician Assistant
DX: M25.511 Pain in right shoulder (principal)

== ENCOUNTER → 2021-02-19 | Outpatient (CLI) | payer MEDICAID ==
--- NOTE | 2021-02-20 07:11 | XR ---
EXAMINATION TYPE: XR abdomen 1V DATE OF EXAM: 02/19/2021 COMPARISON: NONE HISTORY: Pain TECHNIQUE: One view abdominal series FINDINGS: The osseous structures are intact. The bowel gas pattern is nonspecific. Retained fecal debris in th e colon.. IMPRESSION: 1. Nonspecific abdomen.
== END | disposition home or self-care (01) ==
LOC: RADXRYALE 16:56
PROVIDERS: ATTEND Family Medicine
DX: R10.9 Unspecified abdominal pain (principal)
CPT/HCPCS: 74018

== ENCOUNTER → 2021-03-08 | Outpatient (CLI) | payer MEDICAID ==
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
== END | disposition home or self-care (01) ==
LOC: RADMRIMAIN 06:42
PROVIDERS: ATTEND Family Medicine
DX: M67.813 Other specified disorders of tendon, right shoulder (principal)

== ENCOUNTER 2024-07-08 09:11 | Day surgery (SDC) | payer BC ==
[2024-07-07 09:02] VITALS: BMI 30.8
[~2024-07-08 09:11] MED LIST: LIDOCAINE 1% (10MG/ML) FOR IV START INTRADERMA PRN
[2024-07-08 09:31] VITALS: TEMP 98
[2024-07-08] MEDS: LACTATED RINGERS 1,000 ML IV SCH (09:46)
[2024-07-08] MEDS: LACTATED RINGERS 1,000 ML IV ONE ×2 (09:46→10:22)
[2024-07-08] MEDS ORDERED: PROPOFOL 10 MG/ML 20 ML VIAL IV ONE (10:23)
[2024-07-08] MEDS ORDERED: LIDOCAINE 1% INJ 10MG/ML (20 ML MDV) ONE (10:23)
--- NOTE | 2024-07-08 10:36 | P.PCN ---
Date of Procedure: 07/08/24 Procedure(s) Performed: BRIEF HISTORY: Patient is a 34-year-old, pleasant, white male scheduled for an upper endoscopy as a part of evaluation of atypical chest pain and intermittent heartburn and epigastric discomfort for the next several months duration. He had cardiac workup that was negative. He was started on Protonix 40 mg daily about 4 months ago and since then symptoms have significantly improved.. PROCEDURE PERFORMED: Esophagogastroduodenoscopy with biopsy. PREOPERATIVE DIAGNOSIS: Atypical chest pain/GERD. IV sedation per anesthesia. PROCEDURE: After informed consent was obtained, the patient was brought into the endoscopy unit. IV sedation was administered by Anesthesia under continuous monitoring. Initially the Olympus GIF-140 video endoscope was inserted into the mouth. Esophagus intubated without any difficulty. It was gradually advanced into the stomach and duodenum and carefully examined. The bulb and the second part of the duodenum appeared normal. The scope at this time was withdrawn to the stomach, adequately insufflated with air, and upon careful examination, muc maldonado of the antrum, had patchy areas of erythema consistent with gastritis and biopsies were done from this area. Mucosa of the body, cardia and the fundus appeared normal. The scope was then withdrawn into the esophagus. Small sliding-type hiatal hernia noted. The GE junction was located at 39 cm from the incisors. The esophagus appeared normal. There were no erosions or ulcerations seen and the patient tolerated the procedure well. IMPRESSION: 1. Mild antral gastritis. 2. Small hiatal hernia but no evidence of esophagitis or Gao's esophagus. RECOMMENDATIONS: The findings of this examination were discussed with the patient as well as his family. Follow-up with biopsy results. He was advised to continue with Protonix 40 mg daily and follow antireflux measures..
[2024-07-08 10:44] VITALS: RESP 16
[2024-07-08 10:58] VITALS: BP 130/53; PULSE 71
== END 2024-07-08 11:23 | disposition home or self-care (01) ==
LOC: ORWHC2ENDO 09:11
PROVIDERS: ATTEND Internal Medicine Gastroenterology
DX: K29.50 Unspecified chronic gastritis without bleeding (principal); K21.00 Gastro-esophageal reflux disease with esophagitis, without bleeding; K44.9 Diaphragmatic hernia without obstruction or gangrene
CPT/HCPCS: 43239; J2003; J2704; 88305